=== PATIENT | female | born 1930 | race Caucasian/White ===

== ENCOUNTER 2018-02-07 22:07 | Inpatient (IN) | payer MEDICARE ==
[2018-02-07 22:55] VITALS: BP 114/63
[2018-02-07] MEDS ORDERED: Magnesium Hydroxide (MOM) 30 mL UDC PO PRN (23:10)
[2018-02-07] MEDS ORDERED: Maalox 30 mL Cup PO PRN (23:10)
[2018-02-08] MEDS: Multivitamin Tab PO SCH (08:58)
[2018-02-08 10:57] LABS: CHOLESTEROL 175 mg/dL (<200); HDL -HIGH DENSITY LIPOPROTEIN 37 mg/dL (23-92); TRIGLYCERIDES 157 mg/dL (<150)
--- NOTE | 2018-02-08 20:50 | Psychiatric Evaluation ---
DATE OF SERVICE: 02/07/2018 IDENTIFYING DATA: The patient is an 87-year-old woman, living by herself. Information was obtained by directly interviewing the patient as well as reviewing the admission papers and they are reliable. JUSTIFICATION FOR HOSPITALIZATION: The patient is admitted here on a voluntary basis after she was discharged from the [facility] where she was admitted on a 5150 for being grave disability after the police performed a welfare check. The patient has been placed on a 5150 on 02/02/2018. The patient has been hospitalized at [facility] and has been medically cleared after the lab workup was done. The patient is very confused. CHIEF COMPLAINT: "I do not know, they want me to have a checkup." HISTORY OF PRESENT ILLNESS: This is the first psychiatric hospitalization to [facility] for this patient. Staff have been spoken to. The patient's chart has been reviewed. The patient is interviewed. 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 The patient is stating that she has 23 government agents living in her eyes and these agents speak to her and tell her what to do and where to go. The patient has been having very delusional thinking. 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 The patient is stating that she gets paid $5 a week for her work and has been doing this kind of volunteer work for a long time. The patient has also been making statements that she served in the , but woke up one day as he and she and her penis was ____. The patient is very confused at this time. The patient has been very disheveled with a long kwong. The patient is stating that she is renting a room in the back of her house and welfare check indicated that the patient was not able to take care and the patient's place was disheveled and hence the patient has been placed on hold and then brought over here. The patient is stating that she does not have any children nor any family member. The patient has been giving the information but that is not accurate. CURRENT MEDICATIONS: Include Risperdal 0.5 mg at bedtime and Ativan on an as needed basis. PAST PSYCHIATRIC HISTORY: Details are not known. FAMILY HISTORY: Details are not known. SUBSTANCE ABUSE HISTORY: None. SOCIAL HISTORY: The patient is living by herself. 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 The patient is also reported to have worked in the , and the patient is going on a tangent and is not able to give much of any information. MEDICAL HISTORY AND PHYSICAL EXAMINATION: Requested to be done by Dr. Singh. MENTAL STATUS EXAMINATION: The patient is an 87-year-old thin built with facial hair. The patient, however, is noted to be cooperative. The patient is lying down in the bed. The patient is alert and aware that she is in the hospital. The patient is cooperative. Eye contact is noted to be fair. Mood is noted to be irritable. Affect is constricted. The patient's short-term and long-term memory are noted to be very poor. Attention span and concentration are also noted to be very poor. The patient's insight and judgment are noted to be limited. Impulse control is also noted to be limited. The patient is gravely disabled. DIAGNOSTIC IMPRESSION: AXIS IA: Psychotic disorder, not otherwise specified. AXIS IB: Schizophrenia, chronic, paranoid type. AXIS II: None. AXIS III: As per Dr. Singh. IMMEDIATE TREATMENT PLAN: The patient is going to be observed on the inpatient unit, provided with supportive psychotherapy. The patient is going to be encouraged to participate in the groups and verbalize the concerns. Once stabilized, the patient is going to be discharged to self. Bog Cutter is going to be involved in looking placement for the patient. The patient is going to be continued on Risperdal, and Namenda and Aricept are going to be added. ESTIMATED LENGTH OF STAY: 3-5 days. DISCHARGE CRITERIA: When the patient is no longer a threat to self or others and be able to cope up with the stress. JOB# [id number]
--- NOTE | 2018-02-08 22:20 | History & Physical ---
ADMIT DATE: HISTORY OF PRESENT ILLNESS: The patient is an 87-year-old female with long history of psychosis, degenerative joint disease, admitted to [facility] under Dr. Brooks's service for evaluation and treatment. The patient denies any chest pain, shortness of breath, nausea, or vomiting. PAST MEDICAL HISTORY: Significant for degenerative joint disease and psychosis. PAST SURGICAL HISTORY: No recent surgery. ALLERGIES: None. MEDICATIONS: Follow admission reconciliation. SOCIAL HISTORY: No smoking, no alcohol, no drug. FAMILY HISTORY: Noncontributory. REVIEW OF SYSTEMS: SYSTEM: No history of chronic immuno disorder. CARDIOVASCULAR SYSTEM: No coronary artery disease. ENDOCRINE SYSTEM: No diabetes or thyroid problem. GASTROINTESTINAL SYSTEM: No upper or lower gastrointestinal bleed. NEUROLOGICAL SYSTEM: No seizure disorder. SKELETOMUSCULAR SYSTEM: No muscular dystrophy. HEMATOLOGIC SYSTEM: No bleeding tendencies. RESPIRATORY: No asthma. GENITOURINARY: No dysuria or hematuria. PHYSICAL EXAMINATION: GENERAL: She is awake, alert, confused. VITAL SIGNS: Temperature 98.4, heart rate 93, blood pressure 101/58. HEENT: Normocephalic. Pupils reacting to light and accommodation. Sclerae clear. NECK: Supple. Negative for lymphadenopathy, JVD, or bruit. CHEST: Entry of air bilaterally normal. No rhonchi or wheezing. HEART: S1, S2 normal. No murmur or gallop rhythm. ABDOMEN: Soft, bowel sounds positive. EXTREMITIES: No edema. BACK: No vertebral tenderness. SKIN: Intact. NEUROLOGIC: Awake, alert, mildly confused. ASSESSMENT: 1. Degenerative joint disease. 2. Insomnia. 3. Chronic constipation. 4. Psychosis. PLAN: The patient admitted to hospital under Dr. Brooks's service. Medical problems addressed during this hospitalization are psychosis. Medical problems addressed at discharge are constipation and insomnia. The patient is medically stable for activity. Thank you, Dr. Brooks, for asking me to see your patient. JOB# [id number]
[2018-02-09 07:26] LABS: % BASOPHILS 0.1 % (0.0-2.0); % EOSINOPHILS 2.9 % (0.0-5.0); % LYMPHOCYTES 19.8 % (20.0-50.0); % MONOCYTES 13.6 % (2.0-10.0); % NEUTROPHILS 63.6 % (40.0-80.0); EOSINOPHILE ABSOLUTE 0.2 Th/cmm (0.1-0.4); HEMATOCRIT 39.4 % (41.0-60); HEMOGLOBIN 13.2 gm/dL (12-16); LYMPHOCYTE ABSOLUTE 1.3 Th/cmm (1.5-3.0); MEAN CELL VOLUME 93.1 fl (81-100); MEAN CORPUSCULAR HEMOGLOBIN 31.3 pg (27.0-31.0); MEAN CORPUSCULAR HGB CONC 33.6 pg (28.0-36.0); MEAN PLATELET VOLUME 8.7 fl; MONOCYTE ABSOLUTE 0.9 Th/cmm (0.3-1.0); NEUTROPHILE ABSOLUTE 4.2 Th/cmm (1.8-8.0); PLATELET COUNT 258 Th/cmm (150-400); RED BLOOD COUNT 4.23 Mil/cmm (3.80-5.20); RED CELL DISTRIBUTION WIDTH 12.7 % (11.5-20.0); WHITE BLOOD COUNT 6.6 Th/cmm (4.8-10.8)
[2018-02-09] MEDS: Multivitamin Tab PO SCH (08:24)
[2018-02-09 08:52] LABS: ALB/GLOB RATIO 1.1 (1.0-1.8); ALBUMIN 3.3 gm/dL (3.7-5.3); ALKALINE PHOSPHATASE 61 U/L (34-104); BILIRUBIN,TOTAL 0.3 mg/dL (0.3-1.0); BUN - UREA NITROGEN 16 mg/dL (7-25); CALCIUM SERUM 9.9 mg/dL (8.6-10.3); CARBON DIOXIDE 28.1 mEq/L (21.0-31.0); CHLORIDE 101 mEq/L (98-107); CREATININE - SERUM 0.7 mg/dL (0.6-1.2); GLUCOSE 86 mg/dL (70-105); POTASSIUM SERUM 4.1 mEq/L (3.5-5.1); SGOT 13 U/L (13-39); SGPT/ALT 9 U/L (7-52); SODIUM SERUM 136 mEq/L (136-145); TOTAL PROTEIN,SERUM 6.4 gm/dL (6.0-8.3)
--- NOTE | 2018-02-09 11:18 | Consultation ---
DATE OF CONSULTATION: 02/09/2018 REFERRING PHYSICIAN: Shaila Brooks M.D. TYPE OF CONSULTATION: Psychology. HISTORY OF PRESENT ILLNESS: The patient is an 87-year-old female. The patient lives at home by herself. The following is by review of the medical record as well as by patient's self report. The patient is being admitted as a transfer from [facility] where she was admitted on a 5150 for being gravely disabled after the police performed a welfare check. The patient was placed on a 5150 on 02/02/2018. The patient was medically cleared and therefore transferred here for stabilization. The patient presents as very confused. 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 The patient also stated that she worked for the [employer]. According to record review from [facility] and patient stated that she also worked in the . The patient also states that at one time, she was a man. The patient continued to be quite confused and delusional with extremely poor reality testing. The patient did not answer questions about any wish to or if she was experiencing any suicidal ideation, plan or intention. PAST MEDICAL HISTORY: Please see history and physical by Dr. Singh. PAST PSYCHIATRIC HISTORY: The history is based on the [facility] admission. The patient was diagnosed with possible schizophrenia as well as a psychotic disorder. The patient is not under the care of a psychiatrist or psychologist. The patient has been transferred here for stabilization. SUBSTANCE ABUSE HISTORY: The patient did not answer this question. PSYCHOSOCIAL HISTORY: According to record review, the patient lives by herself and rents a room in the home. This information is not verified and is somewhat vague. 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 The patient stated, multiple different occupations which on presenting appearance do not seem to have relevance. The patient is not making much sense and is markedly tangential. The patient did not answer questions about current legal problems or quaker affiliation. The patient did not answer questions about family involvement, marital status or whether she has children. The attending psychiatrist and correctional casework specialist/sr. social media & mobile manager will be involved in the patient's possible placement upon discharge. MENTAL STATUS EXAMINATION: The patient appears to be her stated age. The patient presents as frail with facial hair. Eye contact is poor. Speech is delayed. The patient is not responding coherently to the clinical interview questions. The patient's attitude is superficially cooperative. Mood is somewhat irritable. Affect is constricted. Thought process shows to be profoundly confused with marked tangentiality and loose associations. The patient denied any auditory or visual hallucinations and the patient did not answer questions about suicidal ideation, plan or intention. The patient's behavior on the unit is difficult to redirect. Impulse control is poor. Concentration is poor. Sensorium is alert and oriented to self only. The patient did not participate in the memory assessment. It appears that immediate memory and short term memory are impaired. Long-term memory needs further evaluation, but also presents as impaired. The patient did not participate in the interpretation of proverbs. Insight is impaired. Judgment is impaired. DIAGNOSTIC IMPRESSION: AXIS I: 1. Psychotic disorder, not otherwise specified. 2. Provisional diagnosis of schizophrenia, chronic paranoid type. AXIS II: Deferred. AXIS III: Per Dr. Singh. TREATMENT PLAN: The patient has been seen by Dr. Brooks for psychiatric evaluation and for the management of the patient's psychotropic medications. We will provide supportive psychotherapy to include reality orientation, differentiation and integration. We will encourage the patient to be able to demonstrate emotional and self-regulation prior to her discharge. We will provide motivational enhancement for the patient to become compliant and stay compliant with all aspects of her care and treatment plan. The patient will continually be evaluated with respect to failure to thrive as well as the patient's status as gravely disabled. The attending psychiatrist indicates the patient is being continued on Risperdal. Namenda and Aricept are going to be added. The correctional casework specialist and the attending psychiatrist will be involved with determination of whether the patient needs placement or will be discharged and return home contingent upon determining whether the patient has an outpatient support system. We will continue to provide supportive therapy and coping strategies for phase of life issues as well. We will encourage the patient to verbally contract for safety, prior to her discharge. Thank you, Dr. Brooks for this consult and the opportunity to participate in this patient's care. JOB# [id number] [facility]
--- NOTE | 2018-02-09 20:41 | Internal Medicine Prog Note ---
Internal Medicine Subjective - Subjective Service Date: 02/09/18 Patient seen and examined:: without staff Patient is:: awake, verbal, in bed, talking, confused Per staff patient has:: no adverse event Internal Medicine Objective - Results Result Diagrams: 02/09/18 06:51 02/09/18 06:20 Recent Labs: Laboratory Last Values WBC 6.6 Th/cmm (4.8-10.8) 02/09/18 06:51 RBC 4.23 Mil/cmm (3.80-5.20) 02/09/18 06:51 Hgb 13.2 gm/dL (12-16) 02/09/18 06:51 Hct 39.4 % (41.0-60) L 02/09/18 06:51 MCV 93.1 fl (81-100) 02/09/18 06:51 MCH 31.3 pg (27.0-31.0) H 02/09/18 06:51 MCHC Differential 33.6 pg (28.0-36.0) 02/09/18 06:51 RDW 12.7 % (11.5-20.0) 02/09/18 06:51 Plt Count 258 Th/cmm (150-400) 02/09/18 06:51 MPV 8.7 fl 02/09/18 06:51 Neutrophils % 63.6 % (40.0-80.0) 02/09/18 06:51 Lymphocytes % 19.8 % (20.0-50.0) L 02/09/18 06:51 Monocytes % 13.6 % (2.0-10.0) H 02/09/18 06:51 Eosinophils % 2.9 % (0.0-5.0) 02/09/18 06:51 Basophils % 0.1 % (0.0-2.0) 02/09/18 06:51 Sodium 136 mEq/L (136-145) 02/09/18 06:20 Potassium 4.1 mEq/L (3.5-5.1) 02/09/18 06:20 Chloride 101 mEq/L (98-107) 02/09/18 06:20 Carbon Dioxide 28.1 mEq/L (21.0-31.0) 02/09/18 06:20 Anion Gap 11.0 (7.0-16.0) 02/09/18 06:20 BUN 16 mg/dL (7-25) 02/09/18 06:20 Creatinine 0.7 mg/dL (0.6-1.2) 02/09/18 06:20 Est GFR ( Amer) TNP 02/09/18 06:20 Est GFR (Non-Af Amer) TNP 02/09/18 06:20 BUN/Creatinine Ratio 22.9 02/09/18 06:20 Glucose 86 mg/dL (70-105) 02/09/18 06:20 Calcium 9.9 mg/dL (8.6-10.3) 02/09/18 06:20 Total Bilirubin 0.3 mg/dL (0.3-1.0) 02/09/18 06:20 AST 13 U/L (13-39) 02/09/18 06:20 ALT 9 U/L (7-52) 02/09/18 06:20 Alkaline Phosphatase 61 U/L (34-104) 02/09/18 06:20 Total Protein 6.4 gm/dL (6.0-8.3) 02/09/18 06:20 Albumin 3.3 gm/dL (3.7-5.3) L 02/09/18 06:20 Globulin 3.1 gm/dL 02/09/18 06:20 Albumin/Globulin Ratio 1.1 (1.0-1.8) 02/09/18 06:20 Triglycerides 157 mg/dL (<150) H 02/08/18 10:12 Cholesterol 175 mg/dL (<200) 02/08/18 10:12 LDL Cholesterol Direct 120 mg/dL (75-193) 02/08/18 10:12 HDL Cholesterol 37 mg/dL (23-92) 02/08/18 10:12 - Physical Exam Vitals and I&O: Vital Signs Temp 97.2 F 02/09/18 14:00 Pulse 82 02/09/18 14:00 Resp 19 02/09/18 14:00 BP 98/59 02/09/18 14:00 Pulse Ox 97 02/09/18 14:00 Intake & Output 02/09/18 02/09/18 02/10/18 06:59 18:59 06:59 Intake Total 120 Balance 120 Intake: Oral 120 Other: # Voids 2 # Bowel Movements 0 Active Medications: Current Medications Acetaminophen (Tylenol) 650 mg PO Q4HR PRN PRN Reason: Mild Pain / Temp above 100 Stop: 04/08/18 23:09 Al Hydrox/Mg Hydrox/Simethicone (Maalox) 30 ml PO Q4HR PRN PRN Reason: GI DISTRESS Stop: 04/08/18 23:09 Cholecalciferol (Vitamin D3) 5,000 iu PO DAILY ELLE Stop: 04/09/18 08:59 Last Admin: 02/09/18 08:24 Dose: 5,000 iu Lorazepam (Ativan) 0.5 mg PO Q4HR PRN; Protocol PRN Reason: Anxiety Stop: 03/09/18 23:09 Magnesium Hydroxide (Milk Of Magnesia) 30 ml PO HS PRN PRN Reason: Constipation Multivitamins/Vitamin C (Theragran) 1 tab PO DAILY ELLE Stop: 04/09/18 08:59 Last Admin: 02/09/18 08:24 Dose: 1 tab Risperidone (Risperdal) 0.5 mg PO HS ELLE; Protocol Stop: 04/09/18 20:59 Last Admin: 02/09/18 20:33 Dose: 0.5 mg Zolpidem Tartrate (Ambien) 5 mg PO HS PRN PRN Reason: Insomnia Stop: 04/08/18 23:09 General: demented HEENT: NC/AT, PERRLA, anicteric sclerae, throat clear Neck: Supple, No JVD, No LAD Abdomen: soft, non-tender, thin, non-distended Extremities: clear Neurological: no change Internal Medicine Assmt/Plan - Assessment Assessment: 1.DJD. 2.CHRONIC CONSTIPATION. 3.PSYCHOSIS.
--- NOTE | 2018-02-10 02:04 | Progress Notes ---
DATE: 02/09/2018 SUBJECTIVE: Staff was spoken to. The patient is interviewed. Mood is noted to be depressed. Affect is constricted. Coping skills are noted to be very poor. The patient is isolative and withdrawn. Insight and judgment at this time are noted to be very much impaired. ASSESSMENT: The patient is still depressed. PLAN: To continue the patient with the supportive therapy, encouraged the patient to verbalize the concerns rather than to act out. JOB# [id number]
[2018-02-10] MEDS: Multivitamin Tab PO SCH (09:01)
--- NOTE | 2018-02-10 17:04 | Internal Medicine Prog Note ---
Internal Medicine Subjective - Subjective Service Date: 02/10/18 Patient seen and examined:: with staff Patient is:: awake, verbal, in bed, talking, confused Per staff patient has:: no adverse event Internal Medicine Objective - Results Result Diagrams: 02/09/18 06:51 02/09/18 06:20 Recent Labs: Laboratory Last Values WBC 6.6 Th/cmm (4.8-10.8) 02/09/18 06:51 RBC 4.23 Mil/cmm (3.80-5.20) 02/09/18 06:51 Hgb 13.2 gm/dL (12-16) 02/09/18 06:51 Hct 39.4 % (41.0-60) L 02/09/18 06:51 MCV 93.1 fl (81-100) 02/09/18 06:51 MCH 31.3 pg (27.0-31.0) H 02/09/18 06:51 MCHC Differential 33.6 pg (28.0-36.0) 02/09/18 06:51 RDW 12.7 % (11.5-20.0) 02/09/18 06:51 Plt Count 258 Th/cmm (150-400) 02/09/18 06:51 MPV 8.7 fl 02/09/18 06:51 Neutrophils % 63.6 % (40.0-80.0) 02/09/18 06:51 Lymphocytes % 19.8 % (20.0-50.0) L 02/09/18 06:51 Monocytes % 13.6 % (2.0-10.0) H 02/09/18 06:51 Eosinophils % 2.9 % (0.0-5.0) 02/09/18 06:51 Basophils % 0.1 % (0.0-2.0) 02/09/18 06:51 Sodium 136 mEq/L (136-145) 02/09/18 06:20 Potassium 4.1 mEq/L (3.5-5.1) 02/09/18 06:20 Chloride 101 mEq/L (98-107) 02/09/18 06:20 Carbon Dioxide 28.1 mEq/L (21.0-31.0) 02/09/18 06:20 Anion Gap 11.0 (7.0-16.0) 02/09/18 06:20 BUN 16 mg/dL (7-25) 02/09/18 06:20 Creatinine 0.7 mg/dL (0.6-1.2) 02/09/18 06:20 Est GFR ( Amer) TNP 02/09/18 06:20 Est GFR (Non-Af Amer) TNP 02/09/18 06:20 BUN/Creatinine Ratio 22.9 02/09/18 06:20 Glucose 86 mg/dL (70-105) 02/09/18 06:20 Calcium 9.9 mg/dL (8.6-10.3) 02/09/18 06:20 Total Bilirubin 0.3 mg/dL (0.3-1.0) 02/09/18 06:20 AST 13 U/L (13-39) 02/09/18 06:20 ALT 9 U/L (7-52) 02/09/18 06:20 Alkaline Phosphatase 61 U/L (34-104) 02/09/18 06:20 Total Protein 6.4 gm/dL (6.0-8.3) 02/09/18 06:20 Albumin 3.3 gm/dL (3.7-5.3) L 02/09/18 06:20 Globulin 3.1 gm/dL 02/09/18 06:20 Albumin/Globulin Ratio 1.1 (1.0-1.8) 02/09/18 06:20 Triglycerides 157 mg/dL (<150) H 02/08/18 10:12 Cholesterol 175 mg/dL (<200) 02/08/18 10:12 LDL Cholesterol Direct 120 mg/dL (75-193) 02/08/18 10:12 HDL Cholesterol 37 mg/dL (23-92) 02/08/18 10:12 - Physical Exam Vitals and I&O: Vital Signs Temp 98.8 F 02/10/18 15:36 Pulse 18 02/10/18 15:36 Resp 88 02/10/18 15:36 BP 93/65 02/10/18 15:36 Pulse Ox 97 02/10/18 15:36 Intake & Output 02/09/18 02/10/18 02/10/18 18:59 06:59 18:59 Intake Total 0 Balance 0 Intake: Oral 0 Other: # Voids 3 Active Medications: Current Medications Acetaminophen (Tylenol) 650 mg PO Q4HR PRN PRN Reason: Mild Pain / Temp above 100 Stop: 04/08/18 23:09 Al Hydrox/Mg Hydrox/Simethicone (Maalox) 30 ml PO Q4HR PRN PRN Reason: GI DISTRESS Stop: 04/08/18 23:09 Cholecalciferol (Vitamin D3) 5,000 iu PO DAILY ELLE Stop: 04/09/18 08:59 Last Admin: 02/10/18 09:01 Dose: 5,000 iu Escitalopram Oxalate (Lexapro) 5 mg PO DAILY ELLE; Protocol Stop: 04/12/18 08:59 Lorazepam (Ativan) 0.5 mg PO Q4HR PRN; Protocol PRN Reason: Anxiety Stop: 03/09/18 23:09 Magnesium Hydroxide (Milk Of Magnesia) 30 ml PO HS PRN PRN Reason: Constipation Multivitamins/Vitamin C (Theragran) 1 tab PO DAILY ELLE Stop: 04/09/18 08:59 Last Admin: 02/10/18 09:01 Dose: 1 tab Risperidone (Risperdal) 0.5 mg PO HS ELLE; Protocol Stop: 04/09/18 20:59 Last Admin: 02/09/18 20:33 Dose: 0.5 mg Zolpidem Tartrate (Ambien) 5 mg PO HS PRN PRN Reason: Insomnia Stop: 04/08/18 23:09 General: demented HEENT: NC/AT, PERRLA, anicteric sclerae, throat clear Neck: Supple, No JVD, No LAD Abdomen: soft, non-tender, thin, non-distended Extremities: clear Neurological: no change Internal Medicine Assmt/Plan - Assessment Assessment: 1.DJD. 2.CHRONIC CONSTIPATION. 3.PSYCHOSIS. - Plan Plan: CONTINUE ON CURRENT MEDICATION AND DIET.
--- NOTE | 2018-02-10 22:51 | Progress Notes ---
DATE: 02/10/2018 PSYCHIATRIC PROGRESS NOTE SUBJECTIVE: Staff was spoken to. The patient is interviewed. Mood is noted to be irritable. Affect is constricted. Coping skills are noted to be still poor. Insight and judgment are also noted to be limited. The patient has been isolative and withdrawn. The patient has no place to return to. The patient's participation is noted to be very poor with regards to any of the activities or concerns. ASSESSMENT: The patient is still paranoid, but is getting more depressed and hence the patient is going to be started on a low dose of the Lexapro today and followed up with the supportive therapy. PLAN: To continue the patient with the low dose of the antidepressant medication and encouraged the patient to verbalize the concerns rather than to act out. [facility]# [id number]
[2018-02-11] MEDS ORDERED: Escitalopram Oxalate 5 mg Tab PO SCH (09:00)
[2018-02-11] MEDS: Multivitamin Tab PO SCH (09:50)
--- NOTE | 2018-02-11 13:39 | Internal Medicine Prog Note ---
Internal Medicine Subjective - Subjective Service Date: 02/11/18 Patient seen and examined:: with staff Patient is:: awake, verbal, in bed, talking, confused Per staff patient has:: no adverse event Internal Medicine Objective - Results Result Diagrams: 02/09/18 06:51 02/09/18 06:20 Recent Labs: Laboratory Last Values WBC 6.6 Th/cmm (4.8-10.8) 02/09/18 06:51 RBC 4.23 Mil/cmm (3.80-5.20) 02/09/18 06:51 Hgb 13.2 gm/dL (12-16) 02/09/18 06:51 Hct 39.4 % (41.0-60) L 02/09/18 06:51 MCV 93.1 fl (81-100) 02/09/18 06:51 MCH 31.3 pg (27.0-31.0) H 02/09/18 06:51 MCHC Differential 33.6 pg (28.0-36.0) 02/09/18 06:51 RDW 12.7 % (11.5-20.0) 02/09/18 06:51 Plt Count 258 Th/cmm (150-400) 02/09/18 06:51 MPV 8.7 fl 02/09/18 06:51 Neutrophils % 63.6 % (40.0-80.0) 02/09/18 06:51 Lymphocytes % 19.8 % (20.0-50.0) L 02/09/18 06:51 Monocytes % 13.6 % (2.0-10.0) H 02/09/18 06:51 Eosinophils % 2.9 % (0.0-5.0) 02/09/18 06:51 Basophils % 0.1 % (0.0-2.0) 02/09/18 06:51 Sodium 136 mEq/L (136-145) 02/09/18 06:20 Potassium 4.1 mEq/L (3.5-5.1) 02/09/18 06:20 Chloride 101 mEq/L (98-107) 02/09/18 06:20 Carbon Dioxide 28.1 mEq/L (21.0-31.0) 02/09/18 06:20 Anion Gap 11.0 (7.0-16.0) 02/09/18 06:20 BUN 16 mg/dL (7-25) 02/09/18 06:20 Creatinine 0.7 mg/dL (0.6-1.2) 02/09/18 06:20 Est GFR ( Amer) TNP 02/09/18 06:20 Est GFR (Non-Af Amer) TNP 02/09/18 06:20 BUN/Creatinine Ratio 22.9 02/09/18 06:20 Glucose 86 mg/dL (70-105) 02/09/18 06:20 Calcium 9.9 mg/dL (8.6-10.3) 02/09/18 06:20 Total Bilirubin 0.3 mg/dL (0.3-1.0) 02/09/18 06:20 AST 13 U/L (13-39) 02/09/18 06:20 ALT 9 U/L (7-52) 02/09/18 06:20 Alkaline Phosphatase 61 U/L (34-104) 02/09/18 06:20 Total Protein 6.4 gm/dL (6.0-8.3) 02/09/18 06:20 Albumin 3.3 gm/dL (3.7-5.3) L 02/09/18 06:20 Globulin 3.1 gm/dL 02/09/18 06:20 Albumin/Globulin Ratio 1.1 (1.0-1.8) 02/09/18 06:20 Triglycerides 157 mg/dL (<150) H 02/08/18 10:12 Cholesterol 175 mg/dL (<200) 02/08/18 10:12 LDL Cholesterol Direct 120 mg/dL (75-193) 02/08/18 10:12 HDL Cholesterol 37 mg/dL (23-92) 02/08/18 10:12 - Physical Exam Vitals and I&O: Vital Signs Temp 98.7 F 02/11/18 06:20 Pulse 80 02/11/18 06:20 Resp 18 02/11/18 06:20 BP 104/61 02/11/18 06:20 Pulse Ox 95 02/11/18 06:20 Intake & Output 02/10/18 02/11/18 02/11/18 18:59 06:59 18:59 Intake Total 500 Balance 500 Intake: Oral 500 Other: # Voids 4 # Bowel Movements 0 Active Medications: Current Medications Acetaminophen (Tylenol) 650 mg PO Q4HR PRN PRN Reason: Mild Pain / Temp above 100 Stop: 04/08/18 23:09 Al Hydrox/Mg Hydrox/Simethicone (Maalox) 30 ml PO Q4HR PRN PRN Reason: GI DISTRESS Stop: 04/08/18 23:09 Cholecalciferol (Vitamin D3) 5,000 iu PO DAILY ELLE Stop: 04/09/18 08:59 Last Admin: 02/11/18 09:50 Dose: 5,000 iu Escitalopram Oxalate (Lexapro) 5 mg PO DAILY ELLE; Protocol Stop: 04/12/18 08:59 Last Admin: 02/11/18 09:50 Dose: 5 mg Lorazepam (Ativan) 0.5 mg PO Q4HR PRN; Protocol PRN Reason: Anxiety Stop: 03/09/18 23:09 Magnesium Hydroxide (Milk Of Magnesia) 30 ml PO HS PRN PRN Reason: Constipation Multivitamins/Vitamin C (Theragran) 1 tab PO DAILY ELLE Stop: 04/09/18 08:59 Last Admin: 02/11/18 09:50 Dose: 1 tab Risperidone (Risperdal) 0.5 mg PO HS ELLE; Protocol Stop: 04/09/18 20:59 Last Admin: 02/10/18 21:41 Dose: 0.5 mg Zolpidem Tartrate (Ambien) 5 mg PO HS PRN PRN Reason: Insomnia Stop: 04/08/18 23:09 General: demented HEENT: NC/AT, PERRLA, anicteric sclerae, throat clear Neck: Supple, No JVD, No LAD Abdomen: soft, non-tender, thin, non-distended Extremities: clear Neurological: no change Internal Medicine Assmt/Plan - Assessment Assessment: 1.DJD. 2.CHRONIC CONSTIPATION. 3.PSYCHOSIS. - Plan Plan: CONTINUE ON CURRENT MEDICATION AND DIET.
--- NOTE | 2018-02-12 01:40 | Progress Notes ---
DATE: 02/11/2018 SUBJECTIVE: Staff was spoken to. The patient is interviewed. Mood is noted to be depressed. Affect is constricted. Coping skills are noted to be very poor. The patient is isolative and withdrawn. No major side effects to the Lexapro are noted. Since the patient is very depressed. It is decided to increase the dose on the Lexapro to 10 mg and encouraged the patient to verbalize the concerns rather than to act out. The patient is still gravely disabled and has no means of supporting herself. PLAN: To continue the patient with the supportive therapy and followup. JOB# [id number]
[2018-02-12] MEDS: Multivitamin Tab PO SCH (08:36)
--- NOTE | 2018-02-12 19:48 | Internal Medicine Prog Note ---
Internal Medicine Subjective - Subjective Service Date: 02/12/18 Patient seen and examined:: without staff Patient is:: awake, verbal, in bed, talking, confused Per staff patient has:: no adverse event Internal Medicine Objective - Results Result Diagrams: 02/09/18 06:51 02/09/18 06:20 Recent Labs: Laboratory Last Values WBC 6.6 Th/cmm (4.8-10.8) 02/09/18 06:51 RBC 4.23 Mil/cmm (3.80-5.20) 02/09/18 06:51 Hgb 13.2 gm/dL (12-16) 02/09/18 06:51 Hct 39.4 % (41.0-60) L 02/09/18 06:51 MCV 93.1 fl (81-100) 02/09/18 06:51 MCH 31.3 pg (27.0-31.0) H 02/09/18 06:51 MCHC Differential 33.6 pg (28.0-36.0) 02/09/18 06:51 RDW 12.7 % (11.5-20.0) 02/09/18 06:51 Plt Count 258 Th/cmm (150-400) 02/09/18 06:51 MPV 8.7 fl 02/09/18 06:51 Neutrophils % 63.6 % (40.0-80.0) 02/09/18 06:51 Lymphocytes % 19.8 % (20.0-50.0) L 02/09/18 06:51 Monocytes % 13.6 % (2.0-10.0) H 02/09/18 06:51 Eosinophils % 2.9 % (0.0-5.0) 02/09/18 06:51 Basophils % 0.1 % (0.0-2.0) 02/09/18 06:51 Sodium 136 mEq/L (136-145) 02/09/18 06:20 Potassium 4.1 mEq/L (3.5-5.1) 02/09/18 06:20 Chloride 101 mEq/L (98-107) 02/09/18 06:20 Carbon Dioxide 28.1 mEq/L (21.0-31.0) 02/09/18 06:20 Anion Gap 11.0 (7.0-16.0) 02/09/18 06:20 BUN 16 mg/dL (7-25) 02/09/18 06:20 Creatinine 0.7 mg/dL (0.6-1.2) 02/09/18 06:20 Est GFR ( Amer) TNP 02/09/18 06:20 Est GFR (Non-Af Amer) TNP 02/09/18 06:20 BUN/Creatinine Ratio 22.9 02/09/18 06:20 Glucose 86 mg/dL (70-105) 02/09/18 06:20 Calcium 9.9 mg/dL (8.6-10.3) 02/09/18 06:20 Total Bilirubin 0.3 mg/dL (0.3-1.0) 02/09/18 06:20 AST 13 U/L (13-39) 02/09/18 06:20 ALT 9 U/L (7-52) 02/09/18 06:20 Alkaline Phosphatase 61 U/L (34-104) 02/09/18 06:20 Total Protein 6.4 gm/dL (6.0-8.3) 02/09/18 06:20 Albumin 3.3 gm/dL (3.7-5.3) L 02/09/18 06:20 Globulin 3.1 gm/dL 02/09/18 06:20 Albumin/Globulin Ratio 1.1 (1.0-1.8) 02/09/18 06:20 Triglycerides 157 mg/dL (<150) H 02/08/18 10:12 Cholesterol 175 mg/dL (<200) 02/08/18 10:12 LDL Cholesterol Direct 120 mg/dL (75-193) 02/08/18 10:12 HDL Cholesterol 37 mg/dL (23-92) 02/08/18 10:12 - Physical Exam Vitals and I&O: Vital Signs Temp 97.6 F 02/12/18 14:00 Pulse 90 02/12/18 14:00 Resp 18 02/12/18 14:00 BP 100/65 02/12/18 14:00 Pulse Ox 96 02/12/18 14:00 Intake & Output 02/12/18 02/12/18 02/13/18 06:59 18:59 06:59 Intake Total 480 1200 Output Total 4 Balance 480 1196 Intake: Oral 480 1200 Output: Urine 4 Other: # Voids 2 # Bowel Movements 3 Active Medications: Current Medications Acetaminophen (Tylenol) 650 mg PO Q4HR PRN PRN Reason: Mild Pain / Temp above 100 Stop: 04/08/18 23:09 Al Hydrox/Mg Hydrox/Simethicone (Maalox) 30 ml PO Q4HR PRN PRN Reason: GI DISTRESS Stop: 04/08/18 23:09 Cholecalciferol (Vitamin D3) 5,000 iu PO DAILY ELLE Stop: 04/09/18 08:59 Last Admin: 02/12/18 08:36 Dose: 5,000 iu Escitalopram Oxalate (Lexapro) 10 mg PO DAILY ELLE; Protocol Stop: 04/13/18 08:59 Last Admin: 02/12/18 08:36 Dose: 10 mg Lorazepam (Ativan) 0.5 mg PO Q4HR PRN; Protocol PRN Reason: Anxiety Stop: 03/09/18 23:09 Multivitamins/Vitamin C (Theragran) 1 tab PO DAILY ELLE Stop: 04/09/18 08:59 Last Admin: 02/12/18 08:36 Dose: 1 tab Risperidone (Risperdal) 0.5 mg PO HS ELLE; Protocol Stop: 04/09/18 20:59 Last Admin: 02/11/18 20:36 Dose: 0.5 mg Zolpidem Tartrate (Ambien) 5 mg PO HS PRN PRN Reason: Insomnia Stop: 04/08/18 23:09 General: demented HEENT: NC/AT, PERRLA, anicteric sclerae, throat clear Neck: Supple, No JVD, No LAD Abdomen: soft, non-tender, thin, non-distended Extremities: clear Neurological: no change Internal Medicine Assmt/Plan - Assessment Assessment: 1.DJD. 2.CHRONIC CONSTIPATION. 3.PSYCHOSIS. - Plan Plan: CONTINUE ON CURRENT MEDICATION AND DIET.
--- NOTE | 2018-02-13 03:43 | Progress Notes ---
DATE: 02/12/2018 SUBJECTIVE: Staff was spoken to. The patient is interviewed. Mood is noted to be irritable. Affect is constricted. The patient is isolative and withdrawn. Coping skills are noted to be poor. Staff was spoken to and she has been following up at the ____. The patient is reported to be not able to return to her own place and the porter sample case has been looking for placement for this patient. ASSESSMENT: The patient is still depressed. PLAN: To continue the patient with the supportive therapy and encourage the patient to verbalize the concerns rather than to act out. JOB# [id number]
[2018-02-13] MEDS: Multivitamin Tab PO SCH (09:20)
--- NOTE | 2018-02-13 20:57 | Internal Medicine Prog Note ---
Internal Medicine Subjective - Subjective Service Date: 02/13/18 Patient seen and examined:: with staff Patient is:: awake, verbal, in bed, talking, confused Per staff patient has:: no adverse event Internal Medicine Objective - Results Result Diagrams: 02/09/18 06:51 02/09/18 06:20 Recent Labs: Laboratory Last Values WBC 6.6 Th/cmm (4.8-10.8) 02/09/18 06:51 RBC 4.23 Mil/cmm (3.80-5.20) 02/09/18 06:51 Hgb 13.2 gm/dL (12-16) 02/09/18 06:51 Hct 39.4 % (41.0-60) L 02/09/18 06:51 MCV 93.1 fl (81-100) 02/09/18 06:51 MCH 31.3 pg (27.0-31.0) H 02/09/18 06:51 MCHC Differential 33.6 pg (28.0-36.0) 02/09/18 06:51 RDW 12.7 % (11.5-20.0) 02/09/18 06:51 Plt Count 258 Th/cmm (150-400) 02/09/18 06:51 MPV 8.7 fl 02/09/18 06:51 Neutrophils % 63.6 % (40.0-80.0) 02/09/18 06:51 Lymphocytes % 19.8 % (20.0-50.0) L 02/09/18 06:51 Monocytes % 13.6 % (2.0-10.0) H 02/09/18 06:51 Eosinophils % 2.9 % (0.0-5.0) 02/09/18 06:51 Basophils % 0.1 % (0.0-2.0) 02/09/18 06:51 Sodium 136 mEq/L (136-145) 02/09/18 06:20 Potassium 4.1 mEq/L (3.5-5.1) 02/09/18 06:20 Chloride 101 mEq/L (98-107) 02/09/18 06:20 Carbon Dioxide 28.1 mEq/L (21.0-31.0) 02/09/18 06:20 Anion Gap 11.0 (7.0-16.0) 02/09/18 06:20 BUN 16 mg/dL (7-25) 02/09/18 06:20 Creatinine 0.7 mg/dL (0.6-1.2) 02/09/18 06:20 Est GFR ( Amer) TNP 02/09/18 06:20 Est GFR (Non-Af Amer) TNP 02/09/18 06:20 BUN/Creatinine Ratio 22.9 02/09/18 06:20 Glucose 86 mg/dL (70-105) 02/09/18 06:20 Calcium 9.9 mg/dL (8.6-10.3) 02/09/18 06:20 Total Bilirubin 0.3 mg/dL (0.3-1.0) 02/09/18 06:20 AST 13 U/L (13-39) 02/09/18 06:20 ALT 9 U/L (7-52) 02/09/18 06:20 Alkaline Phosphatase 61 U/L (34-104) 02/09/18 06:20 Total Protein 6.4 gm/dL (6.0-8.3) 02/09/18 06:20 Albumin 3.3 gm/dL (3.7-5.3) L 02/09/18 06:20 Globulin 3.1 gm/dL 02/09/18 06:20 Albumin/Globulin Ratio 1.1 (1.0-1.8) 02/09/18 06:20 Triglycerides 157 mg/dL (<150) H 02/08/18 10:12 Cholesterol 175 mg/dL (<200) 02/08/18 10:12 LDL Cholesterol Direct 120 mg/dL (75-193) 02/08/18 10:12 HDL Cholesterol 37 mg/dL (23-92) 02/08/18 10:12 - Physical Exam Vitals and I&O: Vital Signs Temp 98.1 F 02/13/18 15:07 Pulse 84 02/13/18 15:07 Resp 18 02/13/18 15:07 BP 118/61 02/13/18 15:07 Pulse Ox 95 02/13/18 15:07 Intake & Output 02/13/18 02/13/18 02/14/18 06:59 18:59 06:59 Intake Total 240 Balance 240 Intake: Oral 240 Other: # Voids 2 Active Medications: Current Medications Acetaminophen (Tylenol) 650 mg PO Q4HR PRN PRN Reason: Mild Pain / Temp above 100 Stop: 04/08/18 23:09 Al Hydrox/Mg Hydrox/Simethicone (Maalox) 30 ml PO Q4HR PRN PRN Reason: GI DISTRESS Stop: 04/08/18 23:09 Cholecalciferol (Vitamin D3) 5,000 iu PO DAILY ELLE Stop: 04/09/18 08:59 Last Admin: 02/13/18 09:20 Dose: 5,000 iu Escitalopram Oxalate (Lexapro) 10 mg PO DAILY ELLE; Protocol Stop: 04/13/18 08:59 Last Admin: 02/13/18 09:20 Dose: 10 mg Lorazepam (Ativan) 0.5 mg PO Q4HR PRN; Protocol PRN Reason: Anxiety Stop: 03/09/18 23:09 Multivitamins/Vitamin C (Theragran) 1 tab PO DAILY ELLE Stop: 04/09/18 08:59 Last Admin: 02/13/18 09:20 Dose: 1 tab Risperidone (Risperdal) 0.5 mg PO HS ELLE; Protocol Stop: 04/09/18 20:59 Last Admin: 02/13/18 20:14 Dose: 0.5 mg Zolpidem Tartrate (Ambien) 5 mg PO HS PRN PRN Reason: Insomnia Stop: 04/08/18 23:09 General: demented HEENT: NC/AT, PERRLA, anicteric sclerae, throat clear Neck: Supple, No JVD, No LAD Abdomen: soft, non-tender, thin, non-distended Extremities: clear Neurological: no change Internal Medicine Assmt/Plan - Assessment Assessment: 1.DJD. 2.CHRONIC CONSTIPATION. 3.PSYCHOSIS. - Plan Plan: CONTINUE ON CURRENT MEDICATION AND DIET. Nutritional Asmnt/Malnutr-PDOC - Dietary Evaluation Malnutrition Findings (Please click <Entered> for more info): Nutritional Asmnt/Malnutrition Start: 02/13/18 14: 06 Text: Status: Complete Freq: Protocol: Document 02/13/18 14:06 LILLY (Rec: 02/13/18 14:13 [email or web address] [email or web address]) Nutritional Asmnt/Malnutrition Patient General Information Nutritional Screening Low Risk Diagnosis psychosis Pertinent Medical Hx/Surgical Hx DJD, psychosis Subjective Information Pt seen sitting on bed having lunch at time of visit. Pt stated good appetite, good food, no food preference given . Per EMR, PO intake 100%. Current Diet Order/ Nutrition Support regular Pertinent Medications 02/09 alb 3.3 Pertinent Labs vit D3, theragran, risperdal Nutritional Hx/Data Height 1.63 m Height (Calculated Centimeters) 162.6 Current Weight (lbs) 48.534 kg Weight (Calculated Kilograms) 48.5 Weight (Calculated Grams) 83873.4 [place] Body Weight 120 Body Mass Index (BMI) 18.3 Weight Status Underweight GI Symptoms GI Symptoms None Last BM 02/12 x 3 Difficult in: None Skin Integrity/Comment: intact Current %PO Good (75-100%) Estimated Nutritional Goals BEE in Kcals: Using Current wt Calories/Kcals/Kg 30-35 Kcals Calculated 1198-1132 Protein: Using Current wt Protein g/k-1.2 Protein Calculated 49-59 Fluid: ml 1470-1715ml (1m/kcal) Nutritional Problem No current Nutrition Prob Problem N/A Malnutrition Alert Is there a minimum of two criteria No selected? Query Text:Check all the applicable criteria. A minimum of two criteria are recommended for diagnosis of either severe or non-severe malnutrition. Malnutrition Related to Morbid Obesity Malnutrition related to morbid obesity No Intervention/Recommendation Comments 1. Continue with regular diet as ordered. 2. Monitor PO intake, wt, labs and skin integrity 3. F/U as low risk in 7d ays, 02/20 Expected Outcomes/Goals Expected Outcomes/Goals 1. PO intake to meet at least 75% of nutritional needs. 2. Wt stability, skin to remain intact, labs to approach WNL.
--- NOTE | 2018-02-13 23:57 | Progress Notes ---
DATE: 02/13/2018 SUBJECTIVE: Staff was spoken to. The patient is interviewed. Mood is noted to be anxious. Affect is appropriate. Not suicidal or homicidal. The patient, however, has no place to return to. The patient is isolative and withdrawn. Coping skills are noted to be poor. manager pool has been trying to work with the patient to see if they can get the patient a safe place. The patient is currently on escitalopram 10 mg in the morning along with Risperdal 0.5 mg at bedtime. No side effects to the medications are noted. ASSESSMENT: The patient is still depressed. PLAN: To continue the patient with the supportive therapy and followup. JOB# [id number]
[2018-02-14] MEDS: Multivitamin Tab PO SCH (09:20)
--- NOTE | 2018-02-14 13:03 | Internal Medicine Prog Note ---
Internal Medicine Subjective - Subjective Service Date: 02/14/18 Patient seen and examined:: with staff (SHE FFELS BETTER) Patient is:: awake, verbal, in bed, talking, confused Per staff patient has:: no adverse event Internal Medicine Objective - Results Result Diagrams: 02/09/18 06:51 02/09/18 06:20 Recent Labs: Laboratory Last Values WBC 6.6 Th/cmm (4.8-10.8) 02/09/18 06:51 RBC 4.23 Mil/cmm (3.80-5.20) 02/09/18 06:51 Hgb 13.2 gm/dL (12-16) 02/09/18 06:51 Hct 39.4 % (41.0-60) L 02/09/18 06:51 MCV 93.1 fl (81-100) 02/09/18 06:51 MCH 31.3 pg (27.0-31.0) H 02/09/18 06:51 MCHC Differential 33.6 pg (28.0-36.0) 02/09/18 06:51 RDW 12.7 % (11.5-20.0) 02/09/18 06:51 Plt Count 258 Th/cmm (150-400) 02/09/18 06:51 MPV 8.7 fl 02/09/18 06:51 Neutrophils % 63.6 % (40.0-80.0) 02/09/18 06:51 Lymphocytes % 19.8 % (20.0-50.0) L 02/09/18 06:51 Monocytes % 13.6 % (2.0-10.0) H 02/09/18 06:51 Eosinophils % 2.9 % (0.0-5.0) 02/09/18 06:51 Basophils % 0.1 % (0.0-2.0) 02/09/18 06:51 Sodium 136 mEq/L (136-145) 02/09/18 06:20 Potassium 4.1 mEq/L (3.5-5.1) 02/09/18 06:20 Chloride 101 mEq/L (98-107) 02/09/18 06:20 Carbon Dioxide 28.1 mEq/L (21.0-31.0) 02/09/18 06:20 Anion Gap 11.0 (7.0-16.0) 02/09/18 06:20 BUN 16 mg/dL (7-25) 02/09/18 06:20 Creatinine 0.7 mg/dL (0.6-1.2) 02/09/18 06:20 Est GFR ( Amer) TNP 02/09/18 06:20 Est GFR (Non-Af Amer) TNP 02/09/18 06:20 BUN/Creatinine Ratio 22.9 02/09/18 06:20 Glucose 86 mg/dL (70-105) 02/09/18 06:20 Calcium 9.9 mg/dL (8.6-10.3) 02/09/18 06:20 Total Bilirubin 0.3 mg/dL (0.3-1.0) 02/09/18 06:20 AST 13 U/L (13-39) 02/09/18 06:20 ALT 9 U/L (7-52) 02/09/18 06:20 Alkaline Phosphatase 61 U/L (34-104) 02/09/18 06:20 Total Protein 6.4 gm/dL (6.0-8.3) 02/09/18 06:20 Albumin 3.3 gm/dL (3.7-5.3) L 02/09/18 06:20 Globulin 3.1 gm/dL 02/09/18 06:20 Albumin/Globulin Ratio 1.1 (1.0-1.8) 02/09/18 06:20 Triglycerides 157 mg/dL (<150) H 02/08/18 10:12 Cholesterol 175 mg/dL (<200) 02/08/18 10:12 LDL Cholesterol Direct 120 mg/dL (75-193) 02/08/18 10:12 HDL Cholesterol 37 mg/dL (23-92) 02/08/18 10:12 - Physical Exam Vitals and I&O: Vital Signs Temp 98.1 F 02/13/18 15:07 Pulse 84 02/13/18 15:07 Resp 18 02/13/18 15:07 BP 118/61 02/13/18 15:07 Pulse Ox 95 02/13/18 15:07 Active Medications: Current Medications Acetaminophen (Tylenol) 650 mg PO Q4HR PRN PRN Reason: Mild Pain / Temp above 100 Stop: 11/04/18 23:09 Al Hydrox/Mg Hydrox/Simethicone (Maalox) 30 ml PO Q4HR PRN PRN Reason: GI DISTRESS Stop: 04/08/18 23:09 Cholecalciferol (Vitamin D3) 5,000 iu PO DAILY ELLE Stop: 04/09/18 08:59 Last Admin: 02/14/18 09:19 Dose: 5,000 iu Escitalopram Oxalate (Lexapro) 10 mg PO DAILY ELLE; Protocol Stop: 04/13/18 08:59 Last Admin: 02/14/18 09:19 Dose: 10 mg Lorazepam (Ativan) 0.5 mg PO Q4HR PRN; Protocol PRN Reason: Anxiety Stop: 03/09/18 23:09 Multivitamins/Vitamin C (Theragran) 1 tab PO DAILY ELLE Stop: 04/09/18 08:59 Last Admin: 02/14/18 09:20 Dose: 1 tab Risperidone (Risperdal) 0.5 mg PO HS ELLE; Protocol Stop: 04/09/18 20:59 Last Admin: 02/13/18 20:14 Dose: 0.5 mg Zolpidem Tartrate (Ambien) 5 mg PO HS PRN PRN Reason: Insomnia Stop: 04/08/18 23:09 General: demented HEENT: NC/AT, PERRLA, anicteric sclerae, throat clear Neck: Supple, No JVD, No LAD Abdomen: soft, non-tender, thin, non-distended Extremities: clear Neurological: no change Internal Medicine Assmt/Plan - Assessment Assessment: 1.DJD. 2.CHRONIC CONSTIPATION. 3.PSYCHOSIS. - Plan Plan: CONTINUE ON CURRENT MEDICATION AND DIET. Nutritional Asmnt/Malnutr-PDOC - Dietary Evaluation Malnutrition Findings (Please click <Entered> for more info): Nutritional Asmnt/Malnutrition Start: 02/13/18 14: 06 Text: Status: Complete Freq: Protocol: Document 02/13/18 14:06 MARCELAG (Rec: 02/13/18 14:13 LILLY [email or web address]) Nutritional Asmnt/Malnutrition Patient General Information Nutritional Screening Low Risk Diagnosis psychosis Pertinent Medical Hx/Surgical Hx DJD, psychosis Subjective Information Pt seen sitting on bed having lunch at time of visit. Pt stated good appetite, good food, no food preference given . Per EMR, PO intake 100%. Current Diet Order/ Nutrition Support regular Pertinent Medications 02/09 alb 3.3 Pertinent Labs vit D3, theragran, risperdal Nutritional Hx/Data Height 1.63 m Height (Calculated Centimeters) 162.6 Current Weight (lbs) 48.534 kg Weight (Calculated Kilograms) 48.5 Weight (Calculated Grams) 95046.4 [place] Body Weight 120 Body Mass Index (BMI) 18.3 Weight Status Underweight GI Symptoms GI Symptoms None Last BM 02/12 x 3 Difficult in: None Skin Integrity/Comment: intact Current %PO Good (75-100%) Estimated Nutritional Goals BEE in Kcals: Using Current wt Calories/Kcals/Kg 30-35 Kcals Calculated 5648-0888 Protein: Using Current wt Protein g/k-1.2 Protein Calculated 49-59 Fluid: ml 1470-1715ml (1m/kcal) Nutritional Problem No current Nutrition Prob Problem N/A Malnutrition Alert Is there a minimum of two criteria No selected? Query Text:Check all the applicable criteria. A minimum of two criteria are recommended for diagnosis of either severe or non-severe malnutrition. Malnutrition Related to Morbid Obesity Malnutrition related to morbid obesity No Intervention/Recommendation Comments 1. Continue with regular diet as ordered. 2. Monitor PO intake, wt, labs and skin integrity 3. F/U as low risk in 7d ays, 02/20 Expected Outcomes/Goals Expected Outcomes/Goals 1. PO intake to meet at least 75% of nutritional needs. 2. Wt stability, skin to remain intact, labs to approach WNL.
--- NOTE | 2018-02-15 07:00 | Progress Notes ---
DATE: 02/14/2018 SUBJECTIVE: Staff was spoken to. The patient is interviewed. Mood is noted to be irritable. Affect is constricted. Insight and judgment are noted to be still impaired. Impulse control is noted to be improving. No side effects to the medications are noted. Coping skills are noted to be poor. The patient is awaiting placement. The patient's depression is resolving. No side effects to the medications are noted. Sleep and appetite are also noted to be improving. ASSESSMENT: The patient is stabilizing and awaiting placement. PLAN: To continue the patient with supportive therapy and follow up. JOB# [id number]
[2018-02-15] MEDS: Multivitamin Tab PO SCH (08:40)
--- NOTE | 2018-02-15 15:17 | Progress Notes ---
DATE: 02/15/2018 SUBJECTIVE: Staff was spoken to. The patient is interviewed. Mood is noted to be irritable. Affect is constricted. Coping skills are noted to still poor. The patient is isolative and withdrawn. The patient is denying any auditory hallucinations or delusions are noted. The case supervisor has been trying to work with the patient and then try to look for placement since no side effects are noted at this time, it is decided to discontinue the Risperdal and continue the patient on Lexapro. JOB# [id number]
--- NOTE | 2018-02-15 22:33 | Internal Medicine Prog Note ---
Internal Medicine Subjective - Subjective Service Date: 02/15/18 Patient seen and examined:: without staff Patient is:: awake, verbal, in bed, talking, confused Per staff patient has:: no adverse event Internal Medicine Objective - Results Result Diagrams: 02/09/18 06:51 02/09/18 06:20 Recent Labs: Laboratory Last Values WBC 6.6 Th/cmm (4.8-10.8) 02/09/18 06:51 RBC 4.23 Mil/cmm (3.80-5.20) 02/09/18 06:51 Hgb 13.2 gm/dL (12-16) 02/09/18 06:51 Hct 39.4 % (41.0-60) L 02/09/18 06:51 MCV 93.1 fl (81-100) 02/09/18 06:51 MCH 31.3 pg (27.0-31.0) H 02/09/18 06:51 MCHC Differential 33.6 pg (28.0-36.0) 02/09/18 06:51 RDW 12.7 % (11.5-20.0) 02/09/18 06:51 Plt Count 258 Th/cmm (150-400) 02/09/18 06:51 MPV 8.7 fl 02/09/18 06:51 Neutrophils % 63.6 % (40.0-80.0) 02/09/18 06:51 Lymphocytes % 19.8 % (20.0-50.0) L 02/09/18 06:51 Monocytes % 13.6 % (2.0-10.0) H 02/09/18 06:51 Eosinophils % 2.9 % (0.0-5.0) 02/09/18 06:51 Basophils % 0.1 % (0.0-2.0) 02/09/18 06:51 Sodium 136 mEq/L (136-145) 02/09/18 06:20 Potassium 4.1 mEq/L (3.5-5.1) 02/09/18 06:20 Chloride 101 mEq/L (98-107) 02/09/18 06:20 Carbon Dioxide 28.1 mEq/L (21.0-31.0) 02/09/18 06:20 Anion Gap 11.0 (7.0-16.0) 02/09/18 06:20 BUN 16 mg/dL (7-25) 02/09/18 06:20 Creatinine 0.7 mg/dL (0.6-1.2) 02/09/18 06:20 Est GFR ( Amer) TNP 02/09/18 06:20 Est GFR (Non-Af Amer) TNP 02/09/18 06:20 BUN/Creatinine Ratio 22.9 02/09/18 06:20 Glucose 86 mg/dL (70-105) 02/09/18 06:20 Calcium 9.9 mg/dL (8.6-10.3) 02/09/18 06:20 Total Bilirubin 0.3 mg/dL (0.3-1.0) 02/09/18 06:20 AST 13 U/L (13-39) 02/09/18 06:20 ALT 9 U/L (7-52) 02/09/18 06:20 Alkaline Phosphatase 61 U/L (34-104) 02/09/18 06:20 Total Protein 6.4 gm/dL (6.0-8.3) 02/09/18 06:20 Albumin 3.3 gm/dL (3.7-5.3) L 02/09/18 06:20 Globulin 3.1 gm/dL 02/09/18 06:20 Albumin/Globulin Ratio 1.1 (1.0-1.8) 02/09/18 06:20 Triglycerides 157 mg/dL (<150) H 02/08/18 10:12 Cholesterol 175 mg/dL (<200) 02/08/18 10:12 LDL Cholesterol Direct 120 mg/dL (75-193) 02/08/18 10:12 HDL Cholesterol 37 mg/dL (23-92) 02/08/18 10:12 - Physical Exam Vitals and I&O: Vital Signs Temp 98.5 F 02/15/18 14:22 Pulse 79 02/15/18 14:22 Resp 16 02/15/18 14:22 BP 94/47 02/15/18 14:22 Pulse Ox 94 02/15/18 14:22 Intake & Output 02/15/18 02/15/18 02/16/18 06:59 18:59 06:59 Intake Total 500 Balance 500 Intake: Oral 500 Other: # Voids 4 2 # Bowel Movements 1 1 Active Medications: Current Medications Acetaminophen (Tylenol) 650 mg PO Q4HR PRN PRN Reason: Mild Pain / Temp above 100 Stop: 04/08/18 23:09 Al Hydrox/Mg Hydrox/Simethicone (Maalox) 30 ml PO Q4HR PRN PRN Reason: GI DISTRESS Stop: 04/08/18 23:09 Cholecalciferol (Vitamin D3) 5,000 iu PO DAILY ELLE Stop: 04/09/18 08:59 Last Admin: 02/15/18 08:39 Dose: 5,000 iu Escitalopram Oxalate (Lexapro) 10 mg PO DAILY ELLE; Protocol Stop: 04/13/18 08:59 Last Admin: 02/15/18 08:40 Dose: 10 mg Lorazepam (Ativan) 0.5 mg PO Q4HR PRN; Protocol PRN Reason: Anxiety Stop: 03/09/18 23:09 Multivitamins/Vitamin C (Theragran) 1 tab PO DAILY ELLE Stop: 04/09/18 08:59 Last Admin: 02/15/18 08:40 Dose: 1 tab Zolpidem Tartrate (Ambien) 5 mg PO HS PRN PRN Reason: Insomnia Stop: 04/08/18 23:09 General: demented HEENT: NC/AT, PERRLA, anicteric sclerae, throat clear Neck: Supple, No JVD, No LAD Abdomen: soft, non-tender, thin, non-distended Extremities: clear Neurological: no change Internal Medicine Assmt/Plan - Assessment Assessment: 1.DJD. 2.CHRONIC CONSTIPATION. 3.PSYCHOSIS. - Plan Plan: CONTINUE ON CURRENT MEDICATION AND DIET. Nutritional Asmnt/Malnutr-PDOC - Dietary Evaluation Malnutrition Findings (Please click <Entered> for more info): Nutritional Asmnt/Malnutrition Start: 02/13/18 14: 06 Text: Status: Complete Freq: Protocol: Document 02/13/18 14:06 LCHENG (Rec: 02/13/18 14:13 [email or web address]) Nutritional Asmnt/Malnutrition Patient General Information Nutritional Screening Low Risk Diagnosis psychosis Pertinent Medical Hx/Surgical Hx DJD, psychosis Subjective Information Pt seen sitting on bed having lunch at time of visit. Pt stated good appetite, good food, no food preference given . Per EMR, PO intake 100%. Current Diet Order/ Nutrition Support regular Pertinent Medications 02/09 alb 3.3 Pertinent Labs vit D3, theragran, risperdal Nutritional Hx/Data Height 1.63 m Height (Calculated Centimeters) 162.6 Current Weight (lbs) 48.534 kg Weight (Calculated Kilograms) 48.5 Weight (Calculated Grams) 57348.4 [place] Body Weight 120 Body Mass Index (BMI) 18.3 Weight Status Underweight GI Symptoms GI Symptoms None Last BM 02/12 x 3 Difficult in: None Skin Integrity/Comment: intact Current %PO Good (75-100%) Estimated Nutritional Goals BEE in Kcals: Using Current wt Calories/Kcals/Kg 30-35 Kcals Calculated 6461-4771 Protein: Using Current wt Protein g/k-1.2 Protein Calculated 49-59 Fluid: ml 1470-1715ml (1m/kcal) Nutritional Problem No current Nutrition Prob Problem N/A Malnutrition Alert Is there a minimum of two criteria No selected? Query Text:Check all the applicable criteria. A minimum of two criteria are recommended for diagnosis of either severe or non-severe malnutrition. Malnutrition Related to Morbid Obesity Malnutrition related to morbid obesity No Intervention/Recommendation Comments 1. Continue with regular diet as ordered. 2. Monitor PO intake, wt, labs and skin integrity 3. F/U as low risk in 7d ays, 02/20 Expected Outcomes/Goals Expected Outcomes/Goals 1. PO intake to meet at least 75% of nutritional needs. 2. Wt stability, skin to remain intact, labs to approach WNL.
[2018-02-16] MEDS: Multivitamin Tab PO SCH (08:58)
--- NOTE | 2018-02-17 02:33 | Progress Notes ---
DATE: 02/16/2018 PSYCHIATRIC PROGRESS NOTE SUBJECTIVE: Staff was spoken to. The patient is interviewed. Mood is noted to be irritable. Affect is constricted. Insight and judgment at this time are noted to be improving. Impulse control seems to be fair. No side effects to the medications are noted. ASSESSMENT: The patient is stabilizing, not suicidal or homicidal. PLAN: To discharge the patient today for followup on outpatient basis. JOB# [id number]
--- NOTE | 2018-02-27 09:40 | Discharge Summary ---
DATE OF DISCHARGE: 02/16/2018 IDENTIFYING DATA: The patient is an 87-year-old woman living by herself. JUSTIFICATION OF HOSPITALIZATION: The patient is admitted on voluntary basis after she was referred from [facility] where she was admitted on 5150. CHIEF COMPLAINT: "I don't know." DIAGNOSES AT THE TIME OF ADMISSION: AXIS I: 1. Psychotic disorder, not otherwise specified. 2. Schizophrenia, chronic paranoid type. AXIS II: None. AXIS III: As per Dr. Singh. HOSPITAL COURSE AND RESPONSE TO TREATMENT: The patient has been observed in the inpatient unit, provided supportive psychotherapy. The patient has been encouraged to verbalize the concerns rather than to act out. The patient has been closely monitored on the inpatient unit. Physical examination was done by Dr. Singh and is noted to be within normal limits. No major intervention was needed. The patient has been started on the Risperdal 0.5 mg and Lexapro has been added 10 mg in the morning. With these medications, the patient has been observed and was not noted to be trying to hurt herself or any other behaviors are noted and hence the patient was finally discharged with recommendation that she is going to be seeking treatment on an outpatient basis. MENTAL STATUS EXAMINATION AT THE TIME OF DISCHARGE: Noted to be stable. The patient is not noted to be a danger to self or others at the time of the discharge. CONDITION AT THE TIME OF THE DISCHARGE: Noted to be stable. DIAGNOSES AT THE TIME OF DISCHARGE: AXIS I: Schizophrenia, chronic paranoid type. AXIS II: None. AXIS III: None. AFTERCARE PLAN: [facility]. [facility]# [id number]
== END 2018-02-16 11:30 | DRG 885 ==
LOC: GERO2 22:07
PROVIDERS: ADMIT Psychiatry & Neurology Psychiatry; ATTEND Psychiatry & Neurology Psychiatry
DX: F20.0 Paranoid schizophrenia (principal); F29 Unspecified psychosis not due to a substance or known physiological condition; M19.90 Unspecified osteoarthritis, unspecified site; G47.00 Insomnia, unspecified; K59.09 Other constipation
CPT/HCPCS: 36415-UA; 80053-TC; 80061-TC; 83036-90; 85025-TC

== ENCOUNTER 2018-06-29 17:46 | Inpatient (IN) | payer MEDICARE, OTHER ==
[2018-06-29 18:25] LABS: HEMOGLOBIN 11.3 gm/dL (12-16); MEAN CORPUSCULAR HEMOGLOBIN 27.8 pg (27.0-31.0); WHITE BLOOD COUNT 12.6 Th/cmm (4.8-10.8)
[2018-06-29 18:29] LABS: HEMATOCRIT 34.3 % (41.0-60); MEAN CELL VOLUME 84.1 fl (81-100); MEAN CORPUSCULAR HGB CONC 33.1 pg (28.0-36.0); MEAN PLATELET VOLUME 6.9 fl; PLATELET COUNT 464 Th/cmm (150-400); RED BLOOD COUNT 4.08 Mil/cmm (3.80-5.20); RED CELL DISTRIBUTION WIDTH 15.5 % (11.5-20.0)
--- NOTE | 2018-06-29 18:39 | ED Physician Chart ---
ED Chief Complaint/HPI - Patient Information Date Seen:: 06/29/18 Time Seen:: 18:36 Chief Complaint:: psychosis History of Present Illness:: this is an 88 yo female who is having episodes of psychosis sent here for evaluation and treatment. Allergies:: Allergies Allergy/AdvReac Type Severity Reaction Status Date / Time No Known Allergies Allergy Verified 02/07/18 22:56 Historian:: Medical Records Review:: Nurse's Note Reviewed ED Review of Systems - Review of Systems General/Constitutional: No fever, No chills, No weight loss, Weakness, No diaphoresis, No edema, No loss of appetite, Other (this patient is unable to give a review of systems) Skin: No skin lesions, No rash, No bruising Head: No headache, No light-headedness Eyes: No loss of vision, No pain, No diplopia ENT: No earache, No nasal drainage, No sore throat, No tinnitus Neck: No neck pain, No swelling, No thyromegaly, No stiffness, No mass noted Cardio Vascular: No chest pain, No palpitations, No PND, No orthopnea, No edema Pulmonary: No SOB, No cough, No sputum, No wheezing GI: No nausea, No vomiting, No diarrhea, No pain, No melena, No hematochezia, No constipation, No hematemesis G/U: No dysuria, No frequency, No hematuria Musculoskeletal: No bone or joint pain, No back pain, No muscle pain Endocrine: No polyuria, No polydipsia Psychiatric: Prior psych history, Depression, No anxiety, No suicidal ideation Hematopoietic: No bruising, No lymphadenopathy Allergic/Immuno: No urticaria, No angioedema Neurological: No syncope, No focal symptoms, No weakness, No paresthesia, No headache, No seizure, No dizziness, No confusion, No vertigo ED Past Medical History - Past Medical History Obtainable: Yes Past Medical History: Dementia, Other (psychosis) Family History: None Social History: Non Smoker, No Alcohol, No Drug Use, Care Facility Surgical History: None Psychiatricy History: Depression, Schizophrenia Family Medical History - Family Member unknown History Unknown: Yes ED Physical Exam - Physical Examination General/Constitutional: Awake, Well-developed, well-nourished, Alert, No distress, GCS 15, Non-toxic appearing, Ambulatory Other Gen/Cons comments:: generalized weakness Head: Atraumatic Eyes: Lids, conjuctiva normal, PERRL, EOMI Skin: Nl inspection, No rash, No skin lesions, No ecchymosis, Well hydrated, No lymphadenopathy ENMT: External ears, nose nl, Nasal exam nl, Lips, teeth, gums nl Neck: Nontender, Full ROM w/o pain, No JVD, No nuchal rigidity, No bruit, No mass, No stridor Respiratory: Nl effort/Exclusion, Clear to Auscultation, No Wheeze/Rhonchi/Rales Cardio Vascular: RRR, No murmur, gallop, rubs, NL S1 S2 GI: No tenderness/rebounding/guarding, No organomegaly, No hernia, Normal BS's, Nondistended, No mass/bruits, No McBurney tenderness : No CVA tenderness Extremities: No tenderness or effusion, Full ROM, normal strength in all extremities, No edema, Normal digits & nails Neuro/Psych: Alert/oriented, DTR's symmetric, Normal sensory exam, Normal motor strength, Judgement/insight normal (depressed mood and poor judgement and insight), Mood normal, Normal gait, No focal deficits Misc: Normal back, No paraspinal tenderness ED Labs/Radiology/EKG Results - EKG Interpretations EKG Time:: 18:29 Rate & Rhythm: rate= 74 Addison: right Intervals: apc seen ED Assessment - Assessment General Assessment: psychosis ED Septic Shock - . Is Septic Shock (SBP<90, OR Lactate>4 mmol\L) present?: No ED Reassessment (Disposition) - Diagnosis Diagnosis:: depression - Aftercare/Follow up Instructions Notes:: dr lockett will care for the patient starting at 1900
[2018-06-29 18:45] LABS: ALB/GLOB RATIO 0.8 (1.0-1.8); ALBUMIN 3.1 gm/dL (3.7-5.3); ALKALINE PHOSPHATASE 72 U/L (34-104); ANION GAP 11.5 (7.0-16.0); BILIRUBIN,TOTAL 0.4 mg/dL (0.3-1.0); BUN - UREA NITROGEN 18 mg/dL (7-25); CALCIUM SERUM 9.6 mg/dL (8.6-10.3); CARBON DIOXIDE 25.4 mEq/L (21.0-31.0); CHLORIDE 102 mEq/L (98-107); CREATININE - SERUM 0.7 mg/dL (0.6-1.2); GLUCOSE 97 mg/dL (70-105); POTASSIUM SERUM 3.9 mEq/L (3.5-5.1); SGOT 17 U/L (13-39); SGPT/ALT 33 U/L (7-52); SODIUM SERUM 135 mEq/L (136-145); TOTAL PROTEIN,SERUM 7.1 gm/dL (6.0-8.3)
[2018-06-29 20:50] LABS: BAND NEUTROPHILE 0 % (0-10); BASOPHIL 0 % (0-3); EOSINOPHIL 2 % (0-5); LYMPHOCYTE 8 % (20-50); MONOCYTE 10 % (2-10); NEUTROPHILS 80 % (40-80)
[2018-06-29 21:47] VITALS: BP 114/56
[2018-06-29] MEDS ORDERED: Maalox 30 mL Cup PO PRN (21:52)
[2018-06-29] MEDS ORDERED: Magnesium Hydroxide (MOM) 30 mL UDC PO PRN (21:52)
--- NOTE | 2018-06-30 08:46 | Diagnostic Imaging Report ---
Portable chest x-ray HISTORY: Cough The heart size is difficult to assess with portable technique and patient rotation. No focal pulmonary processes. Atherosclerotic calcification seen in the aorta. Old right clavicular fracture is seen. IMPRESSION: 1. No acute focal pulmonary processes 2. Atherosclerotic vascular changes
[2018-06-30 09:13] LABS: CHOLESTEROL 195 mg/dL (<200); HDL -HIGH DENSITY LIPOPROTEIN 42 mg/dL (23-92); TRIGLYCERIDES 103 mg/dL (<150)
[2018-06-30] MEDS: Non-Formulary Item 1 EA (Apixaban [Eliquis] 5 MG) PO SCH ×2 (10:55→17:02)
[2018-06-30] MEDS: Non-Formulary Item 1 EA (Amino Acids/Protein Hydrolys [Pro-Stat Sugar Free Liquid] 30 ML) PO SCH (10:55)
[2018-06-30] MEDS: Non-Formulary Item 1 EA (Cranberry Fruit [Cranberry] 450 MG) PO SCH (10:56)
--- NOTE | 2018-06-30 22:30 | History & Physical ---
ADMIT DATE: 06/30/2018 HISTORY OF PRESENT ILLNESS: The patient is an 88-year-old female with long history of dementia, degenerative joint disease, chronic constipation, history of cardiac arrhythmia and psychosis, admitted to [facility] under Dr. Brooks's service for evaluation and treatment. The patient is a poor historian. No chest pain, no shortness of breath, no nausea, no vomiting. The patient has been agitated and refusing medication. PAST MEDICAL HISTORY: Significant for dementia, psychosis, constipation, degenerative joint disease and cardiac arrhythmia. PAST SURGICAL HISTORY: No recent surgery. ALLERGIES: None. MEDICATIONS: Follow admission reconciliation. SOCIAL HISTORY: No smoking, no alcohol, no drug. FAMILY HISTORY: Noncontributory. REVIEW OF SYSTEMS: IMMUNOSYSTEM: No history of chronic immune disorder. CARDIOVASCULAR SYSTEM: She has history of cardiac arrhythmia. ENDOCRINE SYSTEM: No diabetes or thyroid problem. GASTROINTESTINAL: She has chronic constipation. NEUROLOGICAL SYSTEM: No seizure disorder. SKELETOMUSCULAR SYSTEM: She has degenerative joint disease. HEMATOLOGIC SYSTEM: No bleeding tendencies. RESPIRATORY SYSTEM: No asthma. GENITOURINARY: No dysuria or hematuria. PHYSICAL EXAMINATION: GENERAL: She is awake, no coherent. VITAL SIGNS: Temperature 98.3, heart rate 92 and blood pressure 103/67. HEENT: Normocephalic. Pupils reactive to light and accommodation. Sclerae clear. NECK: Supple. Negative for lymphadenopathy, JVD or bruit. CHEST: Air bilaterally normal. No rhonchi or wheezing. HEART: S1 and S2 normal. No murmur, gallop or rhythm. ABDOMEN: Soft, bowel sounds positive. EXTREMITIES: No edema. BACK: Vertebra. SKIN: Intact. BREASTS, PELVIC AND RECTAL: Done by primary physician, no complaint. NEUROLOGIC: She is awake, alert, not coherent. No focal motor deficit. Cranial nerves 2-12 is intact. LABORATORY DATA: White blood cell 12.6, hemoglobin 11.3, hematocrit 34.3 and platelet 464. Sodium 135, potassium 3.9, BUN 18 and creatinine 1.7. ASSESSMENT: 1. History of cardiac arrhythmia. 2. Degenerative joint disease. 3. Mild anemia. 4. Chronic constipation. 5. Dementia. 6. Psychosis. PLAN: The patient admitted to the hospital under Dr. Brooks's service. Problem addressed during hospitalization is psychosis. Medical problems addressed at discharge cardiac arrhythmia, degenerative joint disease and anemia. The patient is medically stable for activity. Thank you, Dr. Brooks, for asking me to see your patient. The patient is a full code. JOB# [id number]
--- NOTE | 2018-07-01 02:00 | Psychiatric Evaluation ---
DATE OF SERVICE: 06/30/2018 PSYCHIATRIC EVALUATION AND EXAMINATION IDENTIFYING DATA: The patient is an 88-year-old woman, resident of [facility]. Information was obtained by directly interviewing the patient as well as reviewing the admission papers. JUSTIFICATION FOR HOSPITALIZATION: The patient is admitted for depression and refusal of care. CHIEF COMPLAINT: "I do not know, I am not feeling good." HISTORY OF PRESENT ILLNESS: This is the second psychiatric hospitalization to this patient, who was hospitalized under my care in 02/2018, following which, the patient was discharged to the [facility]. At the time of the evaluation, the patient has been feeling frustrated and has been depressed and is stating that she could not feel it out what got her depressed. The patient has been isolative and withdrawn and the patient's sleep and appetite prior to the hospitalization is reported to be poor. The patient is stating that she needs to go to her place and should not be at this [facility]. Prior to the hospitalization, the patient is receiving escitalopram 5 mg and is reported to have been having difficult time to cope with the stress. The patient during the interview is isolative, withdrawn, and the patient is feeling frustrated. Sleep and appetite also noted to be very poor. The patient has both short-term as well as long-term memory deficits. The patient is not able to recall anything that happened at the facility for her to be hospitalized in here. The patient is not able to care for herself. The patient has feelings of helplessness and hopelessness. As mentioned earlier, attention span and concentration are also noted to be very poor. The patient is going on a tangent. DIAGNOSTIC IMPRESSION: AXIS IA: Major depressive disorder, recurrent and moderate. AXIS IB: Dementia and behavioral change, secondary trait. AXIS II: None. AXIS III: As per Dr. Singh. IMMEDIATE TREATMENT PLAN: The patient is going to be observed on the inpatient unit, provided with supportive psychotherapy. The patient is going to be closely monitored. Once stabilized, the patient is going to be discharged to [facility] to be followed up on an outpatient basis. [facility]# [id number]
[2018-07-01] MEDS: Non-Formulary Item 1 EA (Amino Acids/Protein Hydrolys [Pro-Stat Sugar Free Liquid] 30 ML) PO SCH (08:24)
[2018-07-01] MEDS: Non-Formulary Item 1 EA (Cranberry Fruit [Cranberry] 450 MG) PO SCH (08:24)
--- NOTE | 2018-07-01 17:22 | Progress Notes ---
DATE: 07/01/2018 SUBJECTIVE: Staff was spoken to. The patient is interviewed. Mood is noted to be irritable. Affect is constricted. The patient has been isolated, withdrawn. Coping skills are noted to be very poor. The patient has been having difficult time to cope with the stress. The patient has been placed on citalopram 5 mg in the morning for her depression and the patient is being closely monitored at this time. No side effects to the medications are noted. ASSESSMENT: The patient is still depressed. PLAN: To continue the patient with the supportive therapy and followup. JOB# [id number]
--- NOTE | 2018-07-01 20:17 | Internal Medicine Prog Note ---
Internal Medicine Subjective - Subjective Service Date: 07/01/18 Patient seen and examined:: with staff Patient is:: awake, verbal, in bed, talking, confused Per staff patient has:: no adverse event Internal Medicine Objective - Results Result Diagrams: 06/29/18 18:18 06/29/18 18:18 Recent Labs: Laboratory Last Values WBC 12.6 Th/cmm (4.8-10.8) H 06/29/18 18:18 RBC 4.08 Mil/cmm (3.80-5.20) 06/29/18 18:18 Hgb 11.3 gm/dL (12-16) L 06/29/18 18:18 Hct 34.3 % (41.0-60) L 06/29/18 18:18 MCV 84.1 fl (81-100) 06/29/18 18:18 MCH 27.8 pg (27.0-31.0) 06/29/18 18:18 MCHC Differential 33.1 pg (28.0-36.0) 06/29/18 18:18 RDW 15.5 % (11.5-20.0) 06/29/18 18:18 Plt Count 464 Th/cmm (150-400) H 06/29/18 18:18 MPV 6.9 fl 06/29/18 18:18 Add Manual Diff YES 06/29/18 18:18 Band Neutrophils % 0 % (0-10) 06/29/18 18:18 Neutrophils (Manual) 80 % (40-80) 06/29/18 18:18 Lymphocytes 8 % (20-50) L 06/29/18 18:18 Monocytes 10 % (2-10) 06/29/18 18:18 Eosinophils 2 % (0-5) 06/29/18 18:18 Basophils 0 % (0-3) 06/29/18 18:18 Sodium 135 mEq/L (136-145) L 06/29/18 18:18 Potassium 3.9 mEq/L (3.5-5.1) 06/29/18 18:18 Chloride 102 mEq/L (98-107) 06/29/18 18:18 Carbon Dioxide 25.4 mEq/L (21.0-31.0) 06/29/18 18:18 Anion Gap 11.5 (7.0-16.0) 06/29/18 18:18 BUN 18 mg/dL (7-25) 06/29/18 18:18 Creatinine 0.7 mg/dL (0.6-1.2) 06/29/18 18:18 Est GFR ( Amer) TNP 06/29/18 18:18 Est GFR (Non-Af Amer) TNP 06/29/18 18:18 BUN/Creatinine Ratio 25.7 06/29/18 18:18 Glucose 97 mg/dL (70-105) 06/29/18 18:18 Calcium 9.6 mg/dL (8.6-10.3) 06/29/18 18:18 Total Bilirubin 0.4 mg/dL (0.3-1.0) 06/29/18 18:18 AST 17 U/L (13-39) 06/29/18 18:18 ALT 33 U/L (7-52) 06/29/18 18:18 Alkaline Phosphatase 72 U/L (34-104) 06/29/18 18:18 Troponin I < 0.01 ng/mL (0.01-0.05) L 06/29/18 18:18 Total Protein 7.1 gm/dL (6.0-8.3) 06/29/18 18:18 Albumin 3.1 gm/dL (3.7-5.3) L 06/29/18 18:18 Globulin 4.0 gm/dL 06/29/18 18:18 Albumin/Globulin Ratio 0.8 (1.0-1.8) L 06/29/18 18:18 Triglycerides 103 mg/dL (<150) 06/29/18 18:18 Cholesterol 195 mg/dL (<200) 06/29/18 18:18 LDL Cholesterol Direct 175 mg/dL (75-193) 06/29/18 18:18 HDL Cholesterol 42 mg/dL (23-92) 06/29/18 18:18 TSH 3.70 uIU/ml (0.34-5.60) 06/29/18 18:18 - Physical Exam Vitals and I&O: Vital Signs Temp 97.8 F 07/01/18 14:12 Pulse 76 07/01/18 14:12 Resp 18 07/01/18 14:12 BP 107/51 07/01/18 14:12 Pulse Ox 95 07/01/18 14:12 Intake & Output 07/01/18 07/01/18 07/02/18 06:59 18:59 06:59 Intake Total 480 Balance 480 Intake: Oral 480 Other: # Voids 2 3 # Bowel Movements 0 Active Medications: Current Medications Acetaminophen (Tylenol) 650 mg PO Q4HR PRN PRN Reason: Mild Pain Stop: 08/28/18 21:51 Al Hydrox/Mg Hydrox/Simethicone (Maalox) 30 ml PO Q4HR PRN PRN Reason: GI DISTRESS Stop: 08/28/18 21:51 Cholecalciferol (Vitamin D3) 5,000 iu PO DAILY [facility] Stop: 08/29/18 08:59 Last Admin: 07/01/18 08:22 Dose: 5,000 iu Docusate Sodium (Colace) 250 mg PO DAILY [facility] Stop: 08/29/18 08:59 Last Admin: 07/01/18 08:22 Dose: 250 mg Escitalopram Oxalate (Lexapro) 5 mg PO DAILY [facility]; Protocol Stop: 08/29/18 08:59 Last Admin: 07/01/18 08:23 Dose: 5 mg Lorazepam (Ativan) 0.5 mg PO Q4HR PRN; Protocol PRN Reason: Anxiety Stop: 07/29/18 19:59 Magnesium Hydroxide (Milk Of Magnesia) 30 ml PO HS PRN PRN Reason: Constipation Stop: 08/28/18 21:51 Miscellaneous (Amino Acids/Protein Hydrolys [Pro-Stat Sugar Free Liquid]) 30 ml PO DAILY [facility] Stop: 08/29/18 08:59 Last Admin: 07/01/18 08:24 Dose: Not Given Rivaroxaban (Xarelto) 15 mg PO 1800 [facility] Stop: 08/30/18 17:59 Last Admin: 07/01/18 17:41 Dose: Not Given Senna (Senna) 17.2 mg PO HS [facility] Stop: 08/29/18 20:59 Last Admin: 07/01/18 20:02 Dose: 17.2 mg Zolpidem Tartrate (Ambien) 2.5 mg PO HS PRN PRN Reason: Insomnia Stop: 08/28/18 21:51 General: demented HEENT: NC/AT, PERRLA, anicteric sclerae, throat clear Neck: Supple, No JVD, No thyromegaly, +2 carotid pulse wo bruit, No LAD Lungs: CTAB Cardiovascular: RRR, Normal S1, Normal S2 Abdomen: soft, non-tender, non-distended Extremities: clear Neurological: no change Internal Medicine Assmt/Plan - Assessment Assessment: 1.CARDIAC ARRHYTHMIA. 2.CHRONIC CONSTIPATION. 3.ANEMIA. 4.PSYCHOSIS. - Plan Plan: CONTINUE ON CURRENT MEDICATION AND DIET.
[2018-07-02] MEDS: Non-Formulary Item 1 EA (Amino Acids/Protein Hydrolys [Pro-Stat Sugar Free Liquid] 30 ML) PO SCH (08:37)
--- NOTE | 2018-07-02 17:17 | Internal Medicine Prog Note ---
Internal Medicine Subjective - Subjective Service Date: 07/02/18 Patient seen and examined:: with staff Patient is:: awake, verbal, in bed, talking, confused Per staff patient has:: no adverse event Internal Medicine Objective - Results Result Diagrams: 06/29/18 18:18 06/29/18 18:18 Recent Labs: Laboratory Last Values WBC 12.6 Th/cmm (4.8-10.8) H 06/29/18 18:18 RBC 4.08 Mil/cmm (3.80-5.20) 06/29/18 18:18 Hgb 11.3 gm/dL (12-16) L 06/29/18 18:18 Hct 34.3 % (41.0-60) L 06/29/18 18:18 MCV 84.1 fl (81-100) 06/29/18 18:18 MCH 27.8 pg (27.0-31.0) 06/29/18 18:18 MCHC Differential 33.1 pg (28.0-36.0) 06/29/18 18:18 RDW 15.5 % (11.5-20.0) 06/29/18 18:18 Plt Count 464 Th/cmm (150-400) H 06/29/18 18:18 MPV 6.9 fl 06/29/18 18:18 Add Manual Diff YES 06/29/18 18:18 Band Neutrophils % 0 % (0-10) 06/29/18 18:18 Neutrophils (Manual) 80 % (40-80) 06/29/18 18:18 Lymphocytes 8 % (20-50) L 06/29/18 18:18 Monocytes 10 % (2-10) 06/29/18 18:18 Eosinophils 2 % (0-5) 06/29/18 18:18 Basophils 0 % (0-3) 06/29/18 18:18 Sodium 135 mEq/L (136-145) L 06/29/18 18:18 Potassium 3.9 mEq/L (3.5-5.1) 06/29/18 18:18 Chloride 102 mEq/L (98-107) 06/29/18 18:18 Carbon Dioxide 25.4 mEq/L (21.0-31.0) 06/29/18 18:18 Anion Gap 11.5 (7.0-16.0) 06/29/18 18:18 BUN 18 mg/dL (7-25) 06/29/18 18:18 Creatinine 0.7 mg/dL (0.6-1.2) 06/29/18 18:18 Est GFR ( Amer) TNP 06/29/18 18:18 Est GFR (Non-Af Amer) TNP 06/29/18 18:18 BUN/Creatinine Ratio 25.7 06/29/18 18:18 Glucose 97 mg/dL (70-105) 06/29/18 18:18 Calcium 9.6 mg/dL (8.6-10.3) 06/29/18 18:18 Total Bilirubin 0.4 mg/dL (0.3-1.0) 06/29/18 18:18 AST 17 U/L (13-39) 06/29/18 18:18 ALT 33 U/L (7-52) 06/29/18 18:18 Alkaline Phosphatase 72 U/L (34-104) 06/29/18 18:18 Troponin I < 0.01 ng/mL (0.01-0.05) L 06/29/18 18:18 Total Protein 7.1 gm/dL (6.0-8.3) 06/29/18 18:18 Albumin 3.1 gm/dL (3.7-5.3) L 06/29/18 18:18 Globulin 4.0 gm/dL 06/29/18 18:18 Albumin/Globulin Ratio 0.8 (1.0-1.8) L 06/29/18 18:18 Triglycerides 103 mg/dL (<150) 06/29/18 18:18 Cholesterol 195 mg/dL (<200) 06/29/18 18:18 LDL Cholesterol Direct 175 mg/dL (75-193) 06/29/18 18:18 HDL Cholesterol 42 mg/dL (23-92) 06/29/18 18:18 TSH 3.70 uIU/ml (0.34-5.60) 06/29/18 18:18 - Physical Exam Vitals and I&O: Vital Signs Temp 97.9 F 07/02/18 14:03 Pulse 84 07/02/18 14:03 Resp 20 07/02/18 14:03 BP 110/60 07/02/18 14:03 Pulse Ox 96 07/02/18 14:03 Intake & Output 07/01/18 07/02/18 07/02/18 18:59 06:59 18:59 Intake Total 480 Balance 480 Intake: Oral 480 Other: # Voids 2 # Bowel Movements 0 Active Medications: Current Medications Acetaminophen (Tylenol) 650 mg PO Q4HR PRN PRN Reason: Mild Pain Stop: 08/28/18 21:51 Al Hydrox/Mg Hydrox/Simethicone (Maalox) 30 ml PO Q4HR PRN PRN Reason: GI DISTRESS Stop: 08/28/18 21:51 Cholecalciferol (Vitamin D3) 5,000 iu PO DAILY [facility] Stop: 08/29/18 08:59 Last Admin: 07/02/18 08:28 Dose: 5,000 iu Docusate Sodium (Colace) 250 mg PO DAILY [facility] Stop: 08/29/18 08:59 Last Admin: 07/02/18 08:28 Dose: 250 mg Escitalopram Oxalate (Lexapro) 10 mg PO DAILY [facility]; Protocol Stop: 09/01/18 08:59 Lorazepam (Ativan) 0.5 mg PO Q4HR PRN; Protocol PRN Reason: Anxiety Stop: 07/29/18 19:59 Magnesium Hydroxide (Milk Of Magnesia) 30 ml PO HS PRN PRN Reason: Constipation Stop: 08/28/18 21:51 Miscellaneous (Amino Acids/Protein Hydrolys [Pro-Stat Sugar Free Liquid]) 30 ml PO DAILY [facility] Stop: 08/29/18 08:59 Last Admin: 07/02/18 08:37 Dose: Not Given Rivaroxaban (Xarelto) 15 mg PO 1800 [facility] Stop: 08/30/18 17:59 Last Admin: 07/01/18 17:41 Dose: Not Given Senna (Senna) 17.2 mg PO HS [facility] Stop: 08/29/18 20:59 Last Admin: 07/01/18 20:02 Dose: 17.2 mg Zolpidem Tartrate (Ambien) 2.5 mg PO HS PRN PRN Reason: Insomnia Stop: 08/28/18 21:51 General: demented HEENT: NC/AT, PERRLA, anicteric sclerae, throat clear Neck: Supple, No JVD, No thyromegaly, +2 carotid pulse wo bruit, No LAD Lungs: CTAB Cardiovascular: RRR, Normal S1, Normal S2 Abdomen: soft, non-tender, non-distended Extremities: clear Neurological: no change Internal Medicine Assmt/Plan - Assessment Assessment: 1.CARDIAC ARRHYTHMIA. 2.CHRONIC CONSTIPATION. 3.ANEMIA. 4.PSYCHOSIS. - Plan Plan: CONTINUE ON CURRENT MEDICATION AND DIET.
--- NOTE | 2018-07-02 23:24 | Progress Notes ---
DATE: 07/02/2018 PSYCHIATRIC PROGRESS NOTE SUBJECTIVE: Staff was spoken to. The patient is interviewed. Mood is noted to be depressed. Affect is constricted. Insight and judgment are noted to be still impaired. Impulse control is noted to be poor. The patient is isolative and withdrawn. Coping skills are noted to be poor. No side effects to the medications are noted. The patient is currently on escitalopram. PLAN: To increase the dose on the medication to 10 mg and follow the patient up. JOB# [id number]
--- NOTE | 2018-07-03 01:58 | Consultation ---
DATE OF CONSULTATION: 07/02/2018 REFERRING PHYSICIAN: Shaila Brooks MD TYPE OF CONSULTATION: Psychology. HISTORY OF PRESENT ILLNESS: The patient is an 88-year-old female. The patient is a resident of [facility]. The following is by review of the medical record and by patient's self-report. The patient is being admitted due to depression as well as resisting and refusing care. The staff at the patient's facility report that the patient is having difficulty coping and has been withdrawn and isolative. The patient is reported to be refusing care at times and is verbalizing that she is depressed. Upon interview, the patient states that she feels hopeless and helpless and depressed. The patient states her appetite is poor and her sleep is poor. The patient denied any suicidal ideation, plan or intention. PAST MEDICAL HISTORY: Please see history and physical by Dr. Singh. PAST PSYCHIATRIC HISTORY: Records are unavailable. Details are unknown. The patient's facility indicated a history of depression. SOCIAL HISTORY: The patient does under the care of a psychiatrist at her placement. SUBSTANCE ABUSE HISTORY: The patient denied any history of alcohol, tobacco or illicit drug use. PSYCHOSOCIAL HISTORY: The patient states that she is . The patient did not offer any information about family members involved in her care. The patient did not answer questions about occupational or educational history or baptism affiliation. The patient denied any history of physical or sexual abuse. The patient denies any current legal problems. MENTAL STATUS EXAMINATION: The patient appears to be her stated age. The patient's attitude is superficially cooperative. Eye contact is poor. Speech is slow and delayed. Thought process is markedly tangential and confused. The patient denied any auditory or visual hallucinations or any delusions. The patient denied any suicidal ideation, plan or intention. However, the patient indicated that there is possibly a passive wish to . The patient's behavior has been withdrawn and amotivated. Impulse control is limited. Concentration is poor. The patient was unable to repeat the 3 items given to her the first time. The patient was unable to recall any of the items given to her. Immediate and short term memory appeared to be impaired. Long-term memory needs further evaluation. The patient is going off on a tangent. Sensorium is alert and oriented to self and place only. The patient did not participate in the interpretation of proverbs. Insight is poor. Judgment is compromised. DIAGNOSTIC IMPRESSION: AXIS I: 1. Major depressive disorder, recurrent, moderate. 2. Dementia with behavioral disturbance. AXIS II: Deferred. AXIS III: Per Dr. Singh. TREATMENT PLAN: The patient has been seen by Dr. Brooks for psychiatric evaluation and for the management of the patient's psychotropic medications. We will provide supportive psychotherapy to include reality orientation, differentiation and integration. We will provide coping strategies for phase of life issues. If the patient is able to demonstrate the capacity to benefit from cognitive behavioral therapy, this will be provided to assist the patient in reducing her depression. We will provide motivational enhancement for the patient to become compliant and stay compliant with all aspects of her care and treatment. Thank you, Dr. Brooks for this consult and the opportunity to participate in this patient's care. JOB# [id number] MTDCallie
[2018-07-03] MEDS: Non-Formulary Item 1 EA (Amino Acids/Protein Hydrolys [Pro-Stat Sugar Free Liquid] 30 ML) PO SCH (08:28)
--- NOTE | 2018-07-03 14:30 | Progress Notes ---
DATE: 07/03/2018 SUBJECTIVE: Staff was spoken to. The patient is interviewed. Mood is noted to be irritable. Affect is constricted. Insight and judgment noted to be still impaired. Impulse control is noted to be limited. Coping skills are noted to be limited. The patient is still isolative and withdrawn. ASSESSMENT: The patient is still depressed. PLAN: To continue the patient with Lexapro and followup. [facility]# [id number]
--- NOTE | 2018-07-03 19:56 | Internal Medicine Prog Note ---
Internal Medicine Subjective - Subjective Service Date: 07/03/18 Patient seen and examined:: with staff Patient is:: awake, verbal, in bed, talking, confused Per staff patient has:: no adverse event Internal Medicine Objective - Results Result Diagrams: 06/29/18 18:18 06/29/18 18:18 Recent Labs: Laboratory Last Values WBC 12.6 Th/cmm (4.8-10.8) H 06/29/18 18:18 RBC 4.08 Mil/cmm (3.80-5.20) 06/29/18 18:18 Hgb 11.3 gm/dL (12-16) L 06/29/18 18:18 Hct 34.3 % (41.0-60) L 06/29/18 18:18 MCV 84.1 fl (81-100) 06/29/18 18:18 MCH 27.8 pg (27.0-31.0) 06/29/18 18:18 MCHC Differential 33.1 pg (28.0-36.0) 06/29/18 18:18 RDW 15.5 % (11.5-20.0) 06/29/18 18:18 Plt Count 464 Th/cmm (150-400) H 06/29/18 18:18 MPV 6.9 fl 06/29/18 18:18 Add Manual Diff YES 06/29/18 18:18 Band Neutrophils % 0 % (0-10) 06/29/18 18:18 Neutrophils (Manual) 80 % (40-80) 06/29/18 18:18 Lymphocytes 8 % (20-50) L 06/29/18 18:18 Monocytes 10 % (2-10) 06/29/18 18:18 Eosinophils 2 % (0-5) 06/29/18 18:18 Basophils 0 % (0-3) 06/29/18 18:18 Sodium 135 mEq/L (136-145) L 06/29/18 18:18 Potassium 3.9 mEq/L (3.5-5.1) 06/29/18 18:18 Chloride 102 mEq/L (98-107) 06/29/18 18:18 Carbon Dioxide 25.4 mEq/L (21.0-31.0) 06/29/18 18:18 Anion Gap 11.5 (7.0-16.0) 06/29/18 18:18 BUN 18 mg/dL (7-25) 06/29/18 18:18 Creatinine 0.7 mg/dL (0.6-1.2) 06/29/18 18:18 Est GFR ( Amer) TNP 06/29/18 18:18 Est GFR (Non-Af Amer) TNP 06/29/18 18:18 BUN/Creatinine Ratio 25.7 06/29/18 18:18 Glucose 97 mg/dL (70-105) 06/29/18 18:18 Calcium 9.6 mg/dL (8.6-10.3) 06/29/18 18:18 Total Bilirubin 0.4 mg/dL (0.3-1.0) 06/29/18 18:18 AST 17 U/L (13-39) 06/29/18 18:18 ALT 33 U/L (7-52) 06/29/18 18:18 Alkaline Phosphatase 72 U/L (34-104) 06/29/18 18:18 Troponin I < 0.01 ng/mL (0.01-0.05) L 06/29/18 18:18 Total Protein 7.1 gm/dL (6.0-8.3) 06/29/18 18:18 Albumin 3.1 gm/dL (3.7-5.3) L 06/29/18 18:18 Globulin 4.0 gm/dL 06/29/18 18:18 Albumin/Globulin Ratio 0.8 (1.0-1.8) L 06/29/18 18:18 Triglycerides 103 mg/dL (<150) 06/29/18 18:18 Cholesterol 195 mg/dL (<200) 06/29/18 18:18 LDL Cholesterol Direct 175 mg/dL (75-193) 06/29/18 18:18 HDL Cholesterol 42 mg/dL (23-92) 06/29/18 18:18 TSH 3.70 uIU/ml (0.34-5.60) 06/29/18 18:18 - Physical Exam Vitals and I&O: Vital Signs Temp 97.1 F 07/03/18 14:40 Pulse 75 07/03/18 14:40 Resp 18 07/03/18 14:40 BP 98/66 07/03/18 14:40 Pulse Ox 98 07/03/18 14:40 Intake & Output 07/03/18 07/03/18 07/04/18 06:59 18:59 06:59 Intake Total 240 Balance 240 Intake: Oral 240 Other: # Voids 2 5 # Bowel Movements 1 Active Medications: Current Medications Acetaminophen (Tylenol) 650 mg PO Q4HR PRN PRN Reason: Mild Pain Stop: 08/28/18 21:51 Al Hydrox/Mg Hydrox/Simethicone (Maalox) 30 ml PO Q4HR PRN PRN Reason: GI DISTRESS Stop: 08/28/18 21:51 Cholecalciferol (Vitamin D3) 5,000 iu PO DAILY [facility] Stop: 08/29/18 08:59 Last Admin: 07/03/18 08:28 Dose: 5,000 iu Docusate Sodium (Colace) 250 mg PO DAILY [facility] Stop: 08/29/18 08:59 Last Admin: 07/03/18 08:28 Dose: 250 mg Escitalopram Oxalate (Lexapro) 10 mg PO DAILY [facility]; Protocol Stop: 09/01/18 08:59 Last Admin: 07/03/18 08:28 Dose: 10 mg Lorazepam (Ativan) 0.5 mg PO Q4HR PRN; Protocol PRN Reason: Anxiety Stop: 07/29/18 19:59 Magnesium Hydroxide (Milk Of Magnesia) 30 ml PO HS PRN PRN Reason: Constipation Stop: 08/28/18 21:51 Miscellaneous (Amino Acids/Protein Hydrolys [Pro-Stat Sugar Free Liquid]) 30 ml PO DAILY [facility] Stop: 08/29/18 08:59 Last Admin: 07/03/18 08:28 Dose: Not Given Rivaroxaban (Xarelto) 15 mg PO 1800 [facility] Stop: 08/30/18 17:59 Last Admin: 07/03/18 17:18 Dose: 15 mg Senna (Senna) 17.2 mg PO HS [facility] Stop: 08/29/18 20:59 Last Admin: 07/02/18 21:09 Dose: 17.2 mg Zolpidem Tartrate (Ambien) 2.5 mg PO HS PRN PRN Reason: Insomnia Stop: 08/28/18 21:51 General: demented HEENT: NC/AT, PERRLA, anicteric sclerae, throat clear Neck: Supple, No JVD, No thyromegaly, +2 carotid pulse wo bruit, No LAD Lungs: CTAB Cardiovascular: RRR, Normal S1, Normal S2 Abdomen: soft, non-tender, non-distended Extremities: clear Neurological: no change Internal Medicine Assmt/Plan - Assessment Assessment: 1.CARDIAC ARRHYTHMIA. 2.CHRONIC CONSTIPATION. 3.ANEMIA. 4.PSYCHOSIS. - Plan Plan: CONTINUE ON CURRENT MEDICATION AND DIET.
[2018-07-04] MEDS: Non-Formulary Item 1 EA (Amino Acids/Protein Hydrolys [Pro-Stat Sugar Free Liquid] 30 ML) PO SCH (09:14)
--- NOTE | 2018-07-04 10:04 | Progress Notes ---
DATE: 07/04/2018 SUBJECTIVE: Staff was spoken to. The patient is interviewed. Mood is noted to be less irritable. Affect is appropriate. Insight and judgment are improving. Impulse control seems to be fair today. No side effects to the medications are noted. The patient has been able to participate in the groups and verbalize the concerns. The patient is currently on 10 mg on the Lexapro and has been able to tolerate. No side effects to the medications are noted. ASSESSMENT: The patient's depression is resolving. PLAN: To continue the patient with the current medications and if the patient continues to be stabilizing this way, possibly the patient is going to be discharged tomorrow for followup on outpatient basis. [facility]# [id number]
--- NOTE | 2018-07-04 21:05 | Internal Medicine Prog Note ---
Internal Medicine Subjective - Subjective Service Date: 07/04/18 Patient seen and examined:: with staff Patient is:: awake, verbal, in bed, talking, confused Per staff patient has:: no adverse event Internal Medicine Objective - Results Result Diagrams: 06/29/18 18:18 06/29/18 18:18 Recent Labs: Laboratory Last Values WBC 12.6 Th/cmm (4.8-10.8) H 06/29/18 18:18 RBC 4.08 Mil/cmm (3.80-5.20) 06/29/18 18:18 Hgb 11.3 gm/dL (12-16) L 06/29/18 18:18 Hct 34.3 % (41.0-60) L 06/29/18 18:18 MCV 84.1 fl (81-100) 06/29/18 18:18 MCH 27.8 pg (27.0-31.0) 06/29/18 18:18 MCHC Differential 33.1 pg (28.0-36.0) 06/29/18 18:18 RDW 15.5 % (11.5-20.0) 06/29/18 18:18 Plt Count 464 Th/cmm (150-400) H 06/29/18 18:18 MPV 6.9 fl 06/29/18 18:18 Add Manual Diff YES 06/29/18 18:18 Band Neutrophils % 0 % (0-10) 06/29/18 18:18 Neutrophils (Manual) 80 % (40-80) 06/29/18 18:18 Lymphocytes 8 % (20-50) L 06/29/18 18:18 Monocytes 10 % (2-10) 06/29/18 18:18 Eosinophils 2 % (0-5) 06/29/18 18:18 Basophils 0 % (0-3) 06/29/18 18:18 Sodium 135 mEq/L (136-145) L 06/29/18 18:18 Potassium 3.9 mEq/L (3.5-5.1) 06/29/18 18:18 Chloride 102 mEq/L (98-107) 06/29/18 18:18 Carbon Dioxide 25.4 mEq/L (21.0-31.0) 06/29/18 18:18 Anion Gap 11.5 (7.0-16.0) 06/29/18 18:18 BUN 18 mg/dL (7-25) 06/29/18 18:18 Creatinine 0.7 mg/dL (0.6-1.2) 06/29/18 18:18 Est GFR ( Amer) TNP 06/29/18 18:18 Est GFR (Non-Af Amer) TNP 06/29/18 18:18 BUN/Creatinine Ratio 25.7 06/29/18 18:18 Glucose 97 mg/dL (70-105) 06/29/18 18:18 Calcium 9.6 mg/dL (8.6-10.3) 06/29/18 18:18 Total Bilirubin 0.4 mg/dL (0.3-1.0) 06/29/18 18:18 AST 17 U/L (13-39) 06/29/18 18:18 ALT 33 U/L (7-52) 06/29/18 18:18 Alkaline Phosphatase 72 U/L (34-104) 06/29/18 18:18 Troponin I < 0.01 ng/mL (0.01-0.05) L 06/29/18 18:18 Total Protein 7.1 gm/dL (6.0-8.3) 06/29/18 18:18 Albumin 3.1 gm/dL (3.7-5.3) L 06/29/18 18:18 Globulin 4.0 gm/dL 06/29/18 18:18 Albumin/Globulin Ratio 0.8 (1.0-1.8) L 06/29/18 18:18 Triglycerides 103 mg/dL (<150) 06/29/18 18:18 Cholesterol 195 mg/dL (<200) 06/29/18 18:18 LDL Cholesterol Direct 175 mg/dL (75-193) 06/29/18 18:18 HDL Cholesterol 42 mg/dL (23-92) 06/29/18 18:18 TSH 3.70 uIU/ml (0.34-5.60) 06/29/18 18:18 - Physical Exam Vitals and I&O: Vital Signs Temp 98.5 F 07/04/18 20:00 Pulse 82 07/04/18 20:00 Resp 18 07/04/18 20:00 BP 127/76 07/04/18 20:00 Pulse Ox 96 07/04/18 20:00 Intake & Output 07/04/18 07/04/18 07/05/18 06:59 18:59 06:59 Intake Total 200 200 Balance 200 200 Intake: Oral 200 200 Other: # Voids 2 5 2 # Bowel Movements 1 Stool Characteristics Formed Brown Active Medications: Current Medications Acetaminophen (Tylenol) 650 mg PO Q4HR PRN PRN Reason: Mild Pain Stop: 08/28/18 21:51 Al Hydrox/Mg Hydrox/Simethicone (Maalox) 30 ml PO Q4HR PRN PRN Reason: GI DISTRESS Stop: 08/28/18 21:51 Cholecalciferol (Vitamin D3) 5,000 iu PO DAILY [facility] Stop: 08/29/18 08:59 Last Admin: 07/04/18 09:14 Dose: 5,000 iu Docusate Sodium (Colace) 250 mg PO DAILY [facility] Stop: 08/29/18 08:59 Last Admin: 07/04/18 09:15 Dose: 250 mg Escitalopram Oxalate (Lexapro) 10 mg PO DAILY [facility]; Protocol Stop: 09/01/18 08:59 Last Admin: 07/04/18 09:15 Dose: 10 mg Lorazepam (Ativan) 0.5 mg PO Q4HR PRN; Protocol PRN Reason: Anxiety Stop: 07/29/18 19:59 Magnesium Hydroxide (Milk Of Magnesia) 30 ml PO HS PRN PRN Reason: Constipation Stop: 08/28/18 21:51 Rivaroxaban (Xarelto) 15 mg PO 1800 [facility] Stop: 08/30/18 17:59 Last Admin: 07/04/18 18:13 Dose: 15 mg Senna (Senna) 17.2 mg PO HS [facility] Stop: 08/29/18 20:59 Last Admin: 07/03/18 20:42 Dose: 17.2 mg Zolpidem Tartrate (Ambien) 2.5 mg PO HS PRN PRN Reason: Insomnia Stop: 08/28/18 21:51 General: demented HEENT: NC/AT, PERRLA, anicteric sclerae, throat clear Neck: Supple, No JVD, No thyromegaly, +2 carotid pulse wo bruit, No LAD Lungs: CTAB Cardiovascular: RRR, Normal S1, Normal S2 Abdomen: soft, non-tender, non-distended Extremities: clear Neurological: no change Internal Medicine Assmt/Plan - Assessment Assessment: 1.CARDIAC ARRHYTHMIA. 2.CHRONIC CONSTIPATION. 3.ANEMIA. 4.PSYCHOSIS. - Plan Plan: CONTINUE ON CURRENT MEDICATION AND DIET.
--- NOTE | 2018-07-05 07:00 | Progress Notes ---
DATE: 07/04/2018 SUBJECTIVE: The patient is seen and interviewed. Case is discussed with staff. The patient presents as less irritable this visit. The patient seems to be improving overall. The staff indicates the patient's impulse control is improving and that the patient is following through with staff direction as well as treatment protocols. The staff reports the patient is participating in the group and milieu therapy. OBJECTIVE: Mood less irritable. Affect: appropriate. Thought process shows to be more goal oriented, but still somewhat confused. The patient denied any hallucinations or delusions. The patient's behavior shows to be less impulsive and more compliant with her care and treatment. ASSESSMENT AND PLAN: The patient's depression is resolving. We provided a simple cognitive behavioral therapeutic approach to reduce the patient's depression. We encouraged the patient to verbalize her concerns. We provided remotivation for compliance with her care and treatment. We provided coping strategies for phase of life issues. We will follow up in 2-3 days to continue the present treatment if the patient is still admitted. Prognosis is fair. JOB# [id number] MTDCallie
--- NOTE | 2018-07-05 20:29 | Progress Notes ---
DATE: 07/05/2018 SUBJECTIVE: Staff was spoken to. The patient is interviewed. Mood is noted to be less irritable. Affect is appropriate. Not suicidal or homicidal. Insight and judgment are noted to be improving. Impulse control is noted to be fair. Coping skills are also noted to be fair. No side effects to the medications are noted. ASSESSMENT: The patient is stabilizing. PLAN: To discharge the patient today for followup on outpatient basis. [facility]# [id number]
== END 2018-07-05 13:00 | DRG 885 ==
LOC: ER 17:46 → GERO2 19:47
PROVIDERS: ADMIT Psychiatry & Neurology Psychiatry; ATTEND Psychiatry & Neurology Psychiatry
DX: F33.1 Major depressive disorder, recurrent, moderate (principal); F03.91 Unspecified dementia, unspecified severity, with behavioral disturbance; F29 Unspecified psychosis not due to a substance or known physiological condition; M19.90 Unspecified osteoarthritis, unspecified site; K59.09 Other constipation; D64.9 Anemia, unspecified; I49.9 Cardiac arrhythmia, unspecified
CPT/HCPCS: 36415-UA; 71045-TC; 80053-TC; 80061-TC; 83036-90; 84443-TC; 84484-TC; 85007-TC; 85025-TC; 93005